=== PATIENT | female | born 1955 | race Hispanic/Latino ===

== ENCOUNTER 2016-12-21 20:47 | Inpatient (IN) | payer MEDICARE, MEDICAID ==
--- NOTE | 2016-12-21 22:09 | C.PDOC ---
History Of Present Illness 61 y/o female with PMHx of DM, and history of gait disturbance, walking with a walker regularly, presents to ED with c/o generalized weakness for the last 2 days. Brother states the patient fell in the tub recently. She has a home health aid that regularly visits her but notes that she has not sustained any other falls recently. Patient denies presence of pain or fevers. Brother notes mild cough recently which has been non-productive. Time Seen by Provider: 12/21/16 21:34 Chief Complaint (Nursing): Weakness/Neurological Deficit History Per: Patient History/Exam Limitations: no limitations Onset/Duration Of Symptoms: Days Current Symptoms Are (Timing): Still Present Seizure Or Post-ictal Symptoms: None Fall Associated With With Symptoms: Yes, No Injury As Result Of Fall Recent travel outside of the [place] States: No Past Medical History Reviewed: Historical Data, Nursing Documentation, Vital Signs Vital Signs: Last Vital Signs Temp 97.9 F 12/21/16 20:56 Pulse 80 12/22/16 00:15 Resp 20 12/22/16 00:15 BP 144/59 L 12/22/16 00:15 Pulse Ox 98 12/22/16 00:13 - Medical History PMH: Diabetes, Schizophrenia Family History: States: Unknown Family Hx - Social History Hx Alcohol Use: No Hx Substance Use: No - Immunization History Hx Tetanus Toxoid Vaccination: No Hx Influenza Vaccination: No Hx Pneumococcal Vaccination: No Review Of Systems Except As Marked, All Systems Reviewed And Found Negative. Constitutional: Positive for: Malaise. Negative for: Fever Cardiovascular: Negative for: Chest Pain Respiratory: Positive for: Cough. Negative for: Sputum Gastrointestinal: Negative for: Vomiting, Diarrhea Skin: Negative for: Rash Physical Exam - Physical Exam Appears: Non-toxic, Other (comfortable, generally weak, answering questions and responsive) Skin: Warm, Dry Head: Atraumatic, Normacephalic Oral Mucosa: Moist Chest: Symmetrical Cardiovascular: Rhythm Regular Respiratory: Normal Breath Sounds, No Rales, No Rhonchi, No Wheezing Gastrointestinal/Abdominal: Soft, No Tenderness Back: No Vertebral Tenderness, Other (mutiple bruises at various stages of healing ) Extremity: Normal ROM, Capillary Refill (< 2 sec. ) Neurological/Psych: Oriented x3 ED Course And Treatment - Laboratory Results Result Diagrams: 12/21/16 22:50 12/21/16 21:56 Lab Interpretation: Abnormal (Mild anemia and thrombocytopenia, renal insufficiency with BUN 48, Cr 1.8) O2 Sat by Pulse Oximetry: 98 (RA) Pulse Ox Interpretation: Normal - Radiology CXR: Interpreted by Me CXR Interpretation: Yes: Other (elevated left hemidiaphragm with ? lingular infiltrate.) Progress Note: EKG, CxR, labs ordered. Reevaluation Time: 23:54 Reassessment Condition: Unchanged - Physician Consult Information Time Consulting Physician Contacted: 23:54 Physician Contacted: Malik Gusman Outcome Of Conversation: PMD being covered by Dr Moore who does not admit here. Patient to be covered by hospitalist. Case discussed with Dr Swan. Disposition - Disposition Disposition: HOSPITALIZED Disposition Time: 00:43 Condition: STABLE Instructions: Weakness (ED) - POA Present On Arrival: None - Clinical Impression Clinical Impression: Weakness, Anemia, Thrombocytopenia, Renal insufficiency, Pneumonia - Scribe Statement The provider has reviewed the documentation as recorded by the Obi Umanzor Provider Scribe Attestation: All medical record entries made by the Obi were at my direction and personally dictated by me. I have reviewed the chart and agree that the record accurately reflects my personal performance of the history, physical exam, medical decision making, and the department course for this patient. I have also personally directed, reviewed, and agree with the discharge instructions and disposition.
[2016-12-21 22:46] LABS: ALB/GLOB RATIO 1.1 (1.0-2.1); BILIRUBIN,TOTAL 0.2 mg/dL (0.2-1.3); TOTAL PROTEIN 6.6 g/dL (6.3-8.3)
[2016-12-21 22:47] LABS: BASO % 0.5 % (0.0-2.0); EOS % 0.3 % (0.0-4.0); HEMATOCRIT 28.6 % (34.0-47.0); LYMPH # 0.6 K/uL (1.0-4.3); LYMPH % 10.1 % (20.0-40.0); MEAN CORPUSCULAR HEMOGLOBIN 27.5 pg (27.0-31.0); MEAN CORPUSCULAR HGB CONC 32.7 g/dL (33.0-37.0); MEAN PLATELET VOLUME 10.6 fL (7.2-11.7); MONO # 0.7 K/uL (0.0-0.8); MONO % 12.3 % (0.0-10.0); RED CELL DISTRIBUTION WIDTH 15.8 % (11.5-14.5); WHITE BLOOD COUNT 5.9 K/uL (4.8-10.8)
[2016-12-21 22:47] LABS: CALCIUM 7.6 mg/dl (8.6-10.4); MAGNESIUM 1.9 mg/dL (1.6-2.3)
[2016-12-21 22:49] LABS: RBC URINE 19 /hpf (0-3); URINE BACTERIA FEW (<OCC); URINE BILIRUBIN NEGATIVE (NEGATIVE); URINE COLOR Yellow (YELLOW); URINE GLUCOSE (UA) 1+ mg/dL (Normal); URINE HYALINE CAST 0-2 /lpf (0-2); URINE KETONE NEGATIVE (NEGATIVE); URINE LEUKOCYTE ESTERASE NEG Leu/uL (Negative); URINE PROTEIN 2+ mg/dL (NEGATIVE); URINE UROBILINOGEN NORMAL mg/dL (0.2-1.0); WBC URINE 6 /hpf (0-5)
[2016-12-21 23:24] LABS: URINE BLOOD 1+ (NEGATIVE)
[2016-12-22] MEDS ORDERED: Azithromycin 500 MG in Sodium Chloride 0.9% 250 ML IVPB STA (00:41)
[2016-12-22] MEDS ORDERED: cefTRIAXone IV 1 gm in Dextros 50 ML IVPB ONE ×2 (00:41→00:47)
[2016-12-22] MEDS ORDERED: Azithromycin 500mg/250ML NS 250 ML IVPB ONE (00:47)
[2016-12-22] MEDS: Sodium Chloride 0.9% 1,000 ML IV SCH ×4 (03:28→23:00)
[2016-12-22 06:50] LABS: IRON 22 ug/dL (37-170)
[2016-12-22 06:56] LABS: POTASSIUM 3.7 mmol/L (3.6-5.2)
[2016-12-22 06:58] LABS: BILIRUBIN,TOTAL 0.4 mg/dL (0.2-1.3)
[2016-12-22 06:59] LABS: CALCIUM 7.2 mg/dl (8.6-10.4); TOTAL PROTEIN 6.1 g/dL (6.3-8.3)
[2016-12-22 07:16] LABS: BASO % 0.5 % (0.0-2.0); HEMATOCRIT 27.1 % (34.0-47.0); LYMPH # 0.5 K/uL (1.0-4.3); LYMPH % 12.9 % (20.0-40.0); MEAN CELL VOLUME 83.4 fL (81.0-99.0); MEAN CORPUSCULAR HGB CONC 32.4 g/dL (33.0-37.0); MEAN PLATELET VOLUME 10.6 fL (7.2-11.7); MONO # 0.7 K/uL (0.0-0.8); MONO % 15.7 % (0.0-10.0); RED CELL DISTRIBUTION WIDTH 15.3 % (11.5-14.5); WHITE BLOOD COUNT 4.2 K/uL (4.8-10.8)
--- NOTE | 2016-12-22 07:20 | CP.PCM.HP ---
<Ami Karey AVINA - Last Filed: 12/22/16 07:22> History of Present Illness - History of Present Illness History of Present Illness: Patient is a 61 year old female with past medical history of schizophrenia and diabetes who presents to the ER accompanied by her brother with complaint of weakness for the past two days. Patient and brother states that she has had a cough that is non-productive, has had occasional diarrhea, and has had decreased appetite since Monday. Patient's brother states that at baseline, patient walks with a walker and can take care of herself for toileting, however recently the patient has needed assistance. Brother also states that the patient was so weak she could hardly get out of a chair by herself. Brother also reports that normally there is a home health aid that comes three times a week for 4 hours each day and assists the patient with bathing. The day prior to admission the home health aid was ill and so the patient tried to shower alone. Per the brother, when he came home from work he found the patient laying in the bathtub unable to get up. Brother helped the patient out of the tub but the patient sustained bruises to her upper back from the fall. Brother also states that the patient's speech is less energetic than normal. PMD: dre snell- last saw one month ago PMHx: diabetes, schizophrenia PSHx: ankle surgery FamHx: many family members with diabetes and heart issues Social: denies tobacco, alcohol, drugs; lives with brother and has home health aid; uses a walker- formerly had history of falls Present on Admission - Present on Admission Any Indicators Present on Admission: No Review of Systems - Constitutional Constitutional: Lethargy, Weakness. absent: Chills, Fever - EENT Nose/Mouth/Throat: absent: Sore Throat - Cardiovascular Cardiovascular: absent: Chest Pain, Chest Pain at Rest, Dyspnea - Respiratory Respiratory: Cough. absent: Dyspnea - Gastrointestinal Gastrointestinal: Diarrhea. absent: Abdominal Pain, Nausea, Vomiting - Genitourinary Genitourinary: absent: Difficulty Urinating, Urinary Frequency - Musculoskeletal Musculoskeletal: absent: Back Pain - Neurological Neurological: Weakness. absent: Focal Weakness Past Patient History - Past Medical History & Family History Past Medical History?: Yes - Past Social History Smoking Status: Never Smoked - CARDIAC Hx Cardiac Disorders: No - PULMONARY Hx Respiratory Disorders: No - NEUROLOGICAL Hx Neurological Disorder: No - HEENT Hx HEENT Problems: No - RENAL Hx Chronic Kidney Disease: No - ENDOCRINE/METABOLIC Hx Endocrine Disorders: Yes Hx Diabetes Mellitus Type 1: Yes - HEMATOLOGICAL/ONCOLOGICAL Hx Blood Disorders: No - INTEGUMENTARY Hx Dermatological Problems: No - MUSCULOSKELETAL/RHEUMATOLOGICAL Hx Musculoskeletal Disorders: Yes Hx Falls: Yes - GASTROINTESTINAL Hx Gastrointestinal Disorders: No - GENITOURINARY/GYNECOLOGICAL Hx Genitourinary Disorders: No - PSYCHIATRIC Hx Psychophysiologic Disorder: Yes Hx Schizophrenia: Yes Hx Substance Use: No - SURGICAL HISTORY Hx Surgeries: Yes Other/Comment: left ankle surgery -2009 - ANESTHESIA Hx Anesthesia: Yes Hx Anesthesia Reactions: No Hx Malignant Hyperthermia: No Has any member of the family had a problem w/ anesthesia?: No Meds Allergies/Adverse Reactions: Allergies Allergy/AdvReac Type Severity Reaction Status Date / Time No Known Allergies Allergy Unverified 12/21/16 21:00 Physical Exam - Constitutional Appears: Non-toxic, No Acute Distress, Unkempt - Head Exam Head Exam: ATRAUMATIC, NORMOCEPHALIC - Eye Exam Eye Exam: EOMI - ENT Exam Additional comments: dry lips - Respiratory Exam Respiratory Exam: NORMAL BREATHING PATTERN. absent: Rales, Rhonchi, Wheezes - Cardiovascular Exam Cardiovascular Exam: +S1, +S2 - GI/Abdominal Exam GI & Abdominal Exam: Normal Bowel Sounds, Soft. absent: Tenderness - Extremities Exam Additional comments: pink ulcer medial left ankle mild edema left lower extremity thickened toenails dry scaling skin on feet - Back Exam Additional comments: ecchymosis upper back - Neurological Exam Neurological exam: Alert, CN II-XII Intact Additional comments: mild dysmetria finger to nose on right rigid motion with flexing of upper and lower extremities - Psychiatric Exam Psychiatric exam: Flat Affect - Skin Skin Exam: Dry, Warm Results - Vital Signs Recent Vital Signs: Last Vital Signs Temp 98.2 F 12/22/16 02:36 Pulse 88 12/22/16 02:36 Resp 19 12/22/16 02:36 BP 125/63 12/22/16 02:36 Pulse Ox 100 12/22/16 02:36 - Labs Result Diagrams: 12/22/16 06:32 12/22/16 06:32 Labs: Laboratory Results - last 24 hr 12/22/16 12/22/16 06:32 06:36 Sodium 134 Potassium 3.7 Chloride 99 Carbon Dioxide 25 Anion Gap 13 BUN 45 H Creatinine 1.8 H Est GFR ( Amer) 34 Est GFR (Non-Af Amer) 28 POC Glucose (mg/dL) 125 H Random Glucose 116 H Calcium 7.2 L Iron 22 L TIBC 273 % Saturation 8 L Total Bilirubin 0.4 AST 84 H ALT 30 Alkaline Phosphatase 77 Total Protein 6.1 L Albumin 3.1 L Globulin 3.0 Albumin/Globulin Ratio 1.0 Assessment & Plan - Assessment and Plan (Free Text) Assessment: Anemia check iron studies check B12 check folate renal insufficiency start NS @ 100cc, will continue to trend BUN/ Cr Cough with suspicion for pneumonia chest xray has obscured left costophrenic angle will check procalcitonin will check CT chest start azithromycin and ceftriaxone Hx schizophrenia patient's brother to bring in medication doses will start cogentin for rigidity on exam- possible medication side effect continue chlorpromazine Hx fall check CT head PT eval Diabetes ISS with accuchecks, diabetic diet Leg wound check venous doppler wound care consult Onychomycosis Podiatry consult for Dr. Perez- help appreciated PPx fall precautions physical therapy case management referral <Vega Swan P - Last Filed: 12/25/16 20:26> Results - Vital Signs Recent Vital Signs: Last Vital Signs Temp 98.7 F 12/25/16 17:29 Pulse 98 H 12/25/16 17:29 Resp 20 12/25/16 17:29 BP 161/69 H 12/25/16 17:29 Pulse Ox 99 12/25/16 17:29 - Labs Result Diagrams: 12/25/16 06:06 12/25/16 06:06 Labs: Laboratory Results - last 24 hr 12/24/16 12/24/16 12/25/16 08:02 20:52 06:06 WBC 7.7 RBC 3.33 L Hgb 8.9 L Hct 27.8 L MCV 83.7 MCH 26.7 L MCHC 31.9 L RDW 15.4 H Plt Count 102 L MPV 10.5 Neut % (Auto) 83.9 H Lymph % (Auto) 7.1 L [place] % (Auto) 7.7 Eos % (Auto) 0.9 Baso % (Auto) 0.4 Neut # 6.5 Lymph # 0.5 L [place] # 0.6 Eos # 0.1 Baso # 0.0 Neutrophils % (Manual) 86 H Band Neutrophils % 1 Lymphocytes % (Manual) 4 L Reactive Lymphs % 1 H Monocytes % (Manual) 8 Toxic Granulation Present Platelet Estimate Slightly decreased L Large Platelets Present Giant Platelets Present Polychromasia Slight Hypochromasia (manual) Slight Poikilocytosis (manual Slight Anisocytosis (manual) Slight Ovalocytes Slight Sodium 140 Potassium 4.3 Chloride 102 Carbon Dioxide 27 Anion Gap 16 BUN 40 H Creatinine 2.2 H Est GFR ( Amer) 27 Est GFR (Non-Af Amer) 23 POC Glucose (mg/dL) 239 H Random Glucose 216 H Calcium 7.6 L Total Bilirubin 0.1 L AST 34 ALT 24 Alkaline Phosphatase 66 Total Protein 6.2 L Albumin 3.1 L Globulin 3.1 Albumin/Globulin Ratio 1.0 Urine Collection Time 24 Urine Total Volume 3250 Ur Protein 24 Hr Calc 3152.5 H 12/25/16 12/25/16 12/25/16 06:17 11:18 17:03 WBC RBC Hgb Hct MCV MCH MCHC RDW Plt Count MPV Neut % (Auto) Lymph % (Auto) [place] % (Auto) Eos % (Auto) Baso % (Auto) Neut # Lymph # [place] # Eos # Baso # Neutrophils % (Manual) Band Neutrophils % Lymphocytes % (Manual) Reactive Lymphs % Monocytes % (Manual) Toxic Granulation Platelet Estimate Large Platelets Giant Platelets Polychromasia Hypochromasia (manual) Poikilocytosis (manual Anisocytosis (manual) Ovalocytes Sodium Potassium Chloride Carbon Dioxide Anion Gap BUN Creatinine Est GFR ( Amer) Est GFR (Non-Af Amer) POC Glucose (mg/dL) 252 H 283 H 269 H Random Glucose Calcium Total Bilirubin AST ALT Alkaline Phosphatase Total Protein Albumin Globulin Albumin/Globulin Ratio Urine Collection Time Urine Total Volume Ur Protein 24 Hr Calc Attending/Attestation - Attestation I have personally seen and examined this patient.: Yes I have fully participated in the care of the patient.: Yes I have reviewed all pertinent clinical information: Yes
[2016-12-22] MEDS: (Novolin R) Insulin Human Regular 100 units/ml vial SC SCH ×4 (07:49→21:11)
[2016-12-22 07:58] LABS: FOLATE 17.5 ng/mL
--- NOTE | 2016-12-22 08:34 | RAD ---
PROCEDURE: CHEST RADIOGRAPH, 1 VIEW HISTORY: Shortness of breath COMPARISON: None available. FINDINGS: LUNGS: Confluent left basilar airspace opacity with small left pleural effusion. Venous congestion. Right hilar prominence. Patient rotated creating a left paratracheal opacity. Repeat study recommended to determine if opacity persists. PLEURA: As above. CARDIOVASCULAR: Cardiomegaly. OSSEOUS STRUCTURES: No significant abnormalities. VISUALIZED UPPER ABDOMEN: Normal. OTHER FINDINGS: None. IMPRESSION: Confluent left basilar airspace opacity with small left pleural effusion. Venous congestion. Right hilar prominence. Patient rotated creating a left paratracheal opacity. Repeat study recommended to determine if opacity persists.
--- NOTE | 2016-12-22 09:32 | CT ---
PROCEDURE: CT HEAD WITHOUT CONTRAST. HISTORY: recent fall COMPARISON: None available. TECHNIQUE: Axial computed tomography images were obtained through the head/brain without intravenous contrast. Radiation dose: Total exam DLP = 981.84 mGy-cm. This CT exam was performed using one or more of the following dose reduction techniques: Automated exposure control, adjustment of the mA and/or kV according to patient size, and/or use of iterative reconstruction technique. FINDINGS: HEMORRHAGE: No acute parenchymal, subarachnoid nor extra-axial hemorrhage. BRAIN: Mild -moderate chronic periventricular white matter ischemic changes are seen extending peripherally into the deep and subcortical white matter both cerebral hemispheres. In addition, few scattered chronic bilateral basal nuclei lacunar type infarcts are present as well. Vascular calcifications of the carotid siphons noted. VENTRICLES: There is dilatation of the ventricular system which may in part be due to central volume loss however the possibility of chronic compensated obstructive hydrocephalus (communicating type) to be excluded. The normal pressure hydrocephalus can be considered only if the clinical triad of dementia, ataxia and incontinence present. CALVARIUM: No acute calvarial fractures. PARANASAL SINUSES: Mild mucosal thickening noted within the ethmoid air complex extending slightly into the inferior aspect of the frontal sinus which is hypoplastic. Mild mucosal thickening within the sphenoid sinus ; tiny fluid levels cannot be completely excluded. MASTOID AIR CELLS: Unremarkable as visualized. No inflammatory changes. OTHER FINDINGS: None. IMPRESSION: Chronic -moderate white matter ischemic changes and scattered chronic bilateral basal nuclei lacunar type infarcts Dilatation of the ventricular system on may in part be due to central volume loss however the possibility of chronic compensated obstructive hydrocephalus to be excluded. Normal pressure hydrocephalus can be considered only if the clinical triad of dementia, ataxia and incontinence present.
--- NOTE | 2016-12-22 09:36 | CT ---
CT chest without IV contrast Indication: Possible pneumonia Technique: Contiguous axial images were obtained through the chest without intravenous contrast enhancement. Sagittal and coronal reconstructions were generated and reviewed. This CT exam was performed using 1 or more of the falling dose reduction techniques: Automated exposure control, adjustment of the MAA and/or kV according to patient size, and/or use of iterative reconstruction technique. Radiation dose (DLP): 574.82 MGy-cm. Comparison: Chest x-ray performed 12/21/16 Findings: Visualized portions of the inferior thyroid gland appear unremarkable. The unenhanced mediastinal and hilar vascular structures appear grossly unremarkable. Mild cardiomegaly. No significant pericardial effusion. Coronary artery calcifications. No bulky adenopathy identified. Lack of IV contrast limits evaluation for adenopathy, in particular hilar adenopathy. Small hiatal hernia/distal esophageal wall thickening. Mild left basilar atelectasis, less likely pneumonia. Mild dependent atelectasis right lung base. No pleural effusion. No pneumothorax. No suspicious pulmonary nodules measuring greater than 5 mm. Limited visualization of the noncontrast upper abdomen appears grossly unremarkable. Degenerative changes of the spine. Impression: Mild left basilar atelectasis, less likely pneumonia. Mild dependent atelectasis right lung base. Small hiatal hernia/distal esophageal wall thickening. Additional findings as above.
--- NOTE | 2016-12-22 14:04 | CP.PCM.PN ---
<Fazal Jones - Last Filed: 12/22/16 15:58> Subjective - Date & Time of Evaluation Date of Evaluation: 12/22/16 Time of Evaluation: 07:30 - Subjective Subjective: PGY-1 Medicine Progress Note for Dr. Clay Patient seen and examined at bedside. No acute event overnight. Patient resting in bed comfortably. Patient slightly lethargic and complaining of weakness. Patient gives minimal one word answers and seems distracted. Patient has no other complaints. Objective - Vital Signs/Intake and Output Vital Signs (last 24 hours): Temp Pulse Resp BP Pulse Ox 98.0 F 94 H 18 154/74 H 96 12/22/16 07:00 12/22/16 07:00 12/22/16 07:00 12/22/16 07:00 12/22/16 07:00 Intake and Output: 12/22/16 12/22/16 06:59 18:59 Intake Total 400 Balance 400 - Medications Medications: Current Medications Benztropine Mesylate (Cogentin) 1 mg PO DAILY [facility] Last Admin: 12/22/16 14:00 Dose: 1 mg Chlorpromazine (Thorazine) 25 mg PO DAILY [facility] Last Admin: 12/22/16 14:00 Dose: 25 mg Sodium Chloride (Sodium Chloride 0.9%) 1,000 mls @ 100 mls/hr IV .Q10H [facility] Last Admin: 12/22/16 14:03 Dose: Not Given Azithromycin 500 mg/ Sodium (Chloride) 250 mls @ 250 mls/hr IVPB DAILY@2330 [facility] Ceftriaxone Sodium (Rocephin Iv 1 Gm Duplex) 50 mls @ 100 mls/hr IVPB DAILY@ 2300 [facility] Insulin Human Regular (Novolin R) 0 unit SC ACHS [facility] PRN Reason: Protocol Last Admin: 12/22/16 12:00 Dose: 2 unit - Labs Labs: 12/22/16 06:32 12/22/16 06:32 - Constitutional Appears: No Acute Distress - Head Exam Head Exam: ATRAUMATIC, NORMOCEPHALIC - Eye Exam Eye Exam: EOMI, Normal appearance Pupil Exam: PERRL - ENT Exam ENT Exam: Mucous Membranes Dry - Neck Exam Neck Exam: Normal Inspection - Respiratory Exam Respiratory Exam: NORMAL BREATHING PATTERN. absent: Accessory Muscle Use, Respiratory Distress - Cardiovascular Exam Cardiovascular Exam: REGULAR RHYTHM, +S1, +S2 - GI/Abdominal Exam GI & Abdominal Exam: Soft, Normal Bowel Sounds. absent: Tenderness - Extremities Exam Extremities Exam: Normal Capillary Refill Additional comments: pink ulcer medial left ankle mild edema left lower extremity thickened toenails - Back Exam Back Exam: absent: CVA tenderness (L), CVA tenderness (R) Additional comments: ecchymosis upper back - Neurological Exam Neurological Exam: Alert, Awake, CN II-XII Intact Additional comments: mild dysmetria finger to nose on right rigid motion with flexing of upper and lower extremities - Psychiatric Exam Psychiatric exam: Flat Affect - Skin Skin Exam: Dry, Warm Additional comments: Abrasions on shoulders bilaterally dry scaly skin on feet Assessment and Plan - Assessment and Plan (Free Text) Plan: 1. Anemia iron 22 L TIBC 273 B12 684 folate 17.5 Ferrous Sulfate 325 mg PO BID 2. Renal insufficiency NS 100cc/hr BUN/ Cr: 45/1.8 Nephro consult, Dr. Larsen, help appreciated 3. Cough with suspicion for pneumonia CXR: obscured left costophrenic angle (see full report) procalcitonin 0.[address] chest: mild basilar atelectasis, mild right lung base atelectasis. Small hiatal hernia (see full report) start azithromycin and ceftriaxone 4. Hx schizophrenia cogentin for rigidity on exam- possible medication side effect continue chlorpromazine 5. s/p fall CT head: chronic microvascular changes, dilation of the ventricles (see full report) Neuro consult, Dr Reynoso, help appreciated Neurosurgery consult, Dr. Franks, help appreciated - discussed case with Dr. Franks, he stated that due to other medical problems there is no benefit for intervention at this point. He will re-evaluate patient with right before discharge or have her follow up as outpatient to formulate plan of care. 6. Diabetes ISS with accuchecks diabetic diet HA1C 9.3 7. Leg wound check venous doppler wound care consult 8. Onychomycosis Podiatry consult, Dr. Perez, help appreciated 9. Prophylactic Measures fall precautions physical therapy case management referral diabetic diet Colace 100 mg PO BID <Isra Clay - Last Filed: 01/25/17 14:56> Objective - Vital Signs/Intake and Output Vital Signs (last 24 hours): Temp Pulse Resp BP Pulse Ox 98.7 F 91 H 20 163/67 H 99 12/26/16 12:58 12/26/16 07:55 12/26/16 07:00 12/26/16 12:58 12/26/16 12:58 - Labs Labs: 12/26/16 06:07 12/26/16 06:07 Attending/Attestation - Attestation I have personally seen and examined this patient.: Yes I have fully participated in the care of the patient.: Yes I have reviewed all pertinent clinical information, including history, physical exam and plan: Yes Notes (Text): Patient seen and examined with the resident. Agree with the resident's evaluation, assessment and plan. 1. Anemia iron 22 L TIBC 273 B12 684 folate 17.5 Ferrous Sulfate 325 mg PO BID 2. Renal insufficiency NS 100cc/hr BUN/ Cr: 45/1.8 Nephro consult, Dr. Larsen, help appreciated 3. Cough with suspicion for pneumonia CXR: obscured left costophrenic angle (see full report) procalcitonin 0.[address] chest: mild basilar atelectasis, mild right lung base atelectasis. Small hiatal hernia (see full report) start azithromycin and ceftriaxone
--- NOTE | 2016-12-22 16:02 | CP.PCM.CON ---
History of Present Illness - History of Present Illness History of Present Illness: 61 year old female with past medical history of schizophrenia and diabetes was seen at bedside regarding elongated toenails. Patient denies any pain to the nails. But she complaints that she "wants her pants changed". Patient is a poor historian. She does not know when the last time her nails have been cut. She denies n/v/f/c/sob/cp. Past Patient History - Past Medical History & Family History Past Medical History?: Yes - Past Social History Smoking Status: Never Smoked - CARDIAC Hx Cardiac Disorders: No - PULMONARY Hx Respiratory Disorders: No - NEUROLOGICAL Hx Neurological Disorder: No - HEENT Hx HEENT Problems: No - RENAL Hx Chronic Kidney Disease: No - ENDOCRINE/METABOLIC Hx Diabetes Mellitus Type 2: Yes - HEMATOLOGICAL/ONCOLOGICAL Hx Blood Disorders: No - INTEGUMENTARY Hx Dermatological Problems: No - MUSCULOSKELETAL/RHEUMATOLOGICAL Hx Musculoskeletal Disorders: Yes Hx Falls: Yes - GASTROINTESTINAL Hx Gastrointestinal Disorders: No - GENITOURINARY/GYNECOLOGICAL Hx Genitourinary Disorders: No - PSYCHIATRIC Hx Psychophysiologic Disorder: Yes Hx Schizophrenia: Yes Hx Substance Use: No - SURGICAL HISTORY Hx Surgeries: Yes Other/Comment: left ankle surgery -2009 - ANESTHESIA Hx Anesthesia: Yes Hx Anesthesia Reactions: No Hx Malignant Hyperthermia: No Has any member of the family had a problem w/ anesthesia?: No Meds Allergies/Adverse Reactions: Allergies Allergy/AdvReac Type Severity Reaction Status Date / Time No Known Allergies Allergy Unverified 12/21/16 21:00 - Medications Medications: Current Medications Benztropine Mesylate (Cogentin) 1 mg PO DAILY [facility] Last Admin: 12/22/16 14:00 Dose: 1 mg Chlorpromazine (Thorazine) 25 mg PO DAILY [facility] Last Admin: 12/22/16 14:00 Dose: 25 mg Sodium Chloride (Sodium Chloride 0.9%) 1,000 mls @ 100 mls/hr IV .Q10H [facility] Last Admin: 12/22/16 14:03 Dose: Not Given Azithromycin 500 mg/ Sodium (Chloride) 250 mls @ 250 mls/hr IVPB DAILY@2330 [facility] Ceftriaxone Sodium (Rocephin Iv 1 Gm Duplex) 50 mls @ 100 mls/hr IVPB DAILY@ 2300 [facility] Insulin Human Regular (Novolin R) 0 unit SC ACHS [facility] PRN Reason: Protocol Last Admin: 12/22/16 12:00 Dose: 2 unit Physical Exam - Constitutional Appears: Non-toxic, No Acute Distress - Extremities Exam Additional comments: Vasc: DP and PT pulses palpable 2/4 b/l. CFT < 3 seconds to all digits b/l. Skin temperature warm to cool from proximal to distal b/l. Neuro: Gross sensation diminished b/l. Ortho: No pain on palpation to digits b/l. Derm:Nails 1,2 on the right are grossly elongated and incurvated. Nails 3-5 on the right, 1-5 on the left are thickened, elongated, discolored. Webspaces are clean, dry, intact. Superficial abrasion noted to the medial aspect of the left calf with red base, no drainage, no malodor noted. - Neurological Exam Neurological exam: Alert, Oriented x3 - Psychiatric Exam Psychiatric exam: Normal Affect, Normal Mood Results - Vital Signs Recent Vital Signs: Last Vital Signs Temp 98.0 F 12/22/16 07:00 Pulse 94 H 12/22/16 07:00 Resp 18 12/22/16 07:00 BP 154/74 H 12/22/16 07:00 Pulse Ox 96 12/22/16 07:00 - Labs Result Diagrams: 12/22/16 06:32 12/22/16 06:32 Labs: Laboratory Results - last 24 hr 12/22/16 12/22/16 12/22/16 06:32 06:36 11:28 WBC 4.2 L RBC 3.25 L Hgb 8.8 L Hct 27.1 L MCV 83.4 MCH 27.0 MCHC 32.4 L RDW 15.3 H Plt Count 118 L MPV 10.6 Neut % (Auto) 69.9 Lymph % (Auto) 12.9 L [place] % (Auto) 15.7 H Eos % (Auto) 1.0 Baso % (Auto) 0.5 Neut # 2.9 Lymph # 0.5 L [place] # 0.7 Eos # 0.0 Baso # 0.0 Sodium 134 Potassium 3.7 Chloride 99 Carbon Dioxide 25 Anion Gap 13 BUN 45 H Creatinine 1.8 H Est GFR ( Amer) 34 Est GFR (Non-Af Amer) 28 POC Glucose (mg/dL) 125 H 219 H Random Glucose 116 H Hemoglobin A1c 9.3 H Calcium 7.2 L Iron 22 L TIBC 273 % Saturation 8 L Total Bilirubin 0.4 AST 84 H ALT 30 Alkaline Phosphatase 77 Total Protein 6.1 L Albumin 3.1 L Globulin 3.0 Albumin/Globulin Ratio 1.0 Vitamin B12 684 Folate 17.5 Procalcitonin 0.50 H Assessment & Plan - Assessment and Plan (Free Text) Assessment: 61 year old female with elongated nails 1-5 b/l. Plan: Patient examined and evaluated Discussed in detail with attending, Dr. Perez Nails 1-5 b/l were debrided in thickness and in length without incident Left leg abrasion dressed with DSD Podiatry will continue to follow patient while in house
[2016-12-22] MEDS: cefTRIAXone IV 1 gm in Dextros 50 ML IVPB SCH (22:16)
[2016-12-22] MEDS: Azithromycin 500 MG in Sodium Chloride 0.9% 250 ML IVPB SCH (22:53)
--- NOTE | 2016-12-23 00:18 | CP.PCM.CON ---
History of Present Illness - History of Present Illness History of Present Illness: History Of Present Illness 61 y/o female with PMHx of DM, and history of gait disturbance, walking with a walker regularly, presents to ED with c/o generalized weakness for the last 2 days. Brother states the patient fell in the tub recently. She has a home health aid that regularly visits her but notes that she has not sustained any other falls recently. Patient denies presence of pain or fevers. Brother notes mild cough recently which has been non-productive. She has a past medical history of schizophrenia and diabetes and a History of inadequate personal Hygiene. She was seen at bedside and was asked regarding elongated toenails. Patient denies any pain to the nails. She does not know when the last time her nails have been cut. She denies n/v/f /c/sob/cp. But she complaints that she "wants her pants changed". Patient is a poor historian. Time Seen by Provider: 12/21/16 21:34 Chief Complaint (Nursing): Weakness/Neurological Deficit History Per: Patient History/Exam Limitations: no limitations Onset/Duration Of Symptoms: Days Current Symptoms Are (Timing): Still Present Seizure Or Post-ictal Symptoms: None Fall Associated With With Symptoms: Yes, No Injury As Result Of Fall Recent travel outside of the [place]: No Past Medical History Reviewed: Historical Data, Nursing Documentation, Vital Signs Vital Signs: Last Vital Signs Temp 97.9 F 12/21/16 20:56 Pulse 80 12/22/16 00:15 Resp 20 12/22/16 00:15 BP 144/59 L 12/22/16 00:15 Pulse Ox 98 12/22/16 00:13 - Medical History PMH: Diabetes, Schizophrenia Family History: States: Unknown Family Hx - Social History Hx Alcohol Use: No Hx Substance Use: No - Immunization History Hx Tetanus Toxoid Vaccination: No Hx Influenza Vaccination: No Hx Pneumococcal Vaccination: No Review Of Systems Except As Marked, All Systems Reviewed And Found Negative. Constitutional: Positive for: Malaise. Negative for: Fever Cardiovascular: Negative for: Chest Pain Respiratory: Positive for: Cough. Negative for: Sputum Gastrointestinal: Negative for: Vomiting, Diarrhea Skin: Negative for: Rash Physical Exam - Physical Exam Appears: Non-toxic, Other (comfortable, generally weak, answering questions and responsive) Skin: Warm, Dry Head: Atraumatic, Normacephalic Oral Mucosa: Moist Chest: Symmetrical Cardiovascular: Rhythm Regular Respiratory: Normal Breath Sounds, No Rales, No Rhonchi, No Wheezing Gastrointestinal/Abdominal: Soft, No Tenderness Back: No Vertebral Tenderness, Other (mutiple bruises at various stages of healing ) Extremity: Normal ROM, Capillary Refill (< 2 sec. ) Neurological/Psych: Oriented x3 - Radiology CXR: Interpreted by Me CXR Interpretation: Yes: Other (elevated left hemidiaphragm with ? lingular infiltrate.) Progress Note: EKG, CXR, labs ordered. Reevaluation Time: 23:54 Reassessment Condition: Unchanged Clinical Impression: Weakness, Anemia, Thrombocytopenia, Renal insufficiency, Pneumonia Past Patient History - Past Medical History & Family History Past Medical History?: Yes - Past Social History Smoking Status: Never Smoked - CARDIAC Hx Cardiac Disorders: No - PULMONARY Hx Respiratory Disorders: No - NEUROLOGICAL Hx Neurological Disorder: No - HEENT Hx HEENT Problems: No - RENAL Hx Chronic Kidney Disease: No - ENDOCRINE/METABOLIC Hx Diabetes Mellitus Type 2: Yes - HEMATOLOGICAL/ONCOLOGICAL Hx Blood Disorders: No - INTEGUMENTARY Hx Dermatological Problems: No - MUSCULOSKELETAL/RHEUMATOLOGICAL Hx Musculoskeletal Disorders: Yes Hx Falls: Yes - GASTROINTESTINAL Hx Gastrointestinal Disorders: No - GENITOURINARY/GYNECOLOGICAL Hx Genitourinary Disorders: No - PSYCHIATRIC Hx Psychophysiologic Disorder: Yes Hx Schizophrenia: Yes Hx Substance Use: No - SURGICAL HISTORY Hx Surgeries: Yes Other/Comment: left ankle surgery -2009 - ANESTHESIA Hx Anesthesia: Yes Hx Anesthesia Reactions: No Hx Malignant Hyperthermia: No Has any member of the family had a problem w/ anesthesia?: No Meds Allergies/Adverse Reactions: Allergies Allergy/AdvReac Type Severity Reaction Status Date / Time No Known Allergies Allergy Unverified 12/21/16 21:00 - Medications Medications: Current Medications Benztropine Mesylate (Cogentin) 1 mg PO DAILY [facility] Last Admin: 12/22/16 14:00 Dose: 1 mg Chlorpromazine (Thorazine) 25 mg PO DAILY [facility] Last Admin: 12/22/16 14:00 Dose: 25 mg Docusate Sodium (Colace) 100 mg PO BID [facility] Last Admin: 12/22/16 17:50 Dose: 100 mg Ferrous Sulfate (Feosol) 325 mg PO BID [facility] Last Admin: 12/22/16 17:50 Dose: 325 mg Sodium Chloride (Sodium Chloride 0.9%) 1,000 mls @ 100 mls/hr IV .Q10H [facility] Last Admin: 12/22/16 17:53 Dose: 100 mls/hr Azithromycin 500 mg/ Sodium (Chloride) 250 mls @ 250 mls/hr IVPB DAILY@2330 [facility] Last Admin: 12/22/16 22:53 Dose: 250 mls/hr Ceftriaxone Sodium (Rocephin Iv 1 Gm Duplex) 50 mls @ 100 mls/hr IVPB DAILY@ 2300 [facility] Last Admin: 12/22/16 22:16 Dose: 100 mls/hr Insulin Human Regular (Novolin R) 0 unit SC ACHS [facility] PRN Reason: Protocol Last Admin: 12/22/16 21:11 Dose: Not Given Physical Exam - Neurological Exam Additional comments: Overweight to obese, big round face with big cheeks , She allowed Podiatry to trim the nails of the left foot, not the Right foot. Mental Status: Normal exam Awake, Alert, Oriented x 3 she has difficulty knowing who is the president but knows the names of her children, as she is not interested in Politics normal memory X 3 Cranial Nerves II to XII: No major deficits Motor: Normal tone, Normal Power DTR 0/4 Toes are down going Sensory: Reduced sensation peripherally in both UEs and Both LEs Cerebellar: Normal FNT Stature and Gait: Not tested. Results - Vital Signs Recent Vital Signs: Last Vital Signs Temp 98.0 F 12/22/16 17:00 Pulse 88 12/22/16 17:00 Resp 20 12/22/16 17:00 BP 165/72 H 12/22/16 17:00 Pulse Ox 100 12/22/16 17:00 - Labs Result Diagrams: 12/24/16 00:08 12/24/16 00:08 Labs: Laboratory Results - last 24 hr 12/22/16 12/22/16 12/22/16 06:32 06:36 11:28 WBC 4.2 L RBC 3.25 L Hgb 8.8 L Hct 27.1 L MCV 83.4 MCH 27.0 MCHC 32.4 L RDW 15.3 H Plt Count 118 L MPV 10.6 Neut % (Auto) 69.9 Lymph % (Auto) 12.9 L [place] % (Auto) 15.7 H Eos % (Auto) 1.0 Baso % (Auto) 0.5 Neut # 2.9 Lymph # 0.5 L [place] # 0.7 Eos # 0.0 Baso # 0.0 Sodium 134 Potassium 3.7 Chloride 99 Carbon Dioxide 25 Anion Gap 13 BUN 45 H Creatinine 1.8 H Est GFR ( Amer) 34 Est GFR (Non-Af Amer) 28 POC Glucose (mg/dL) 125 H 219 H Random Glucose 116 H Hemoglobin A1c 9.3 H Calcium 7.2 L Iron 22 L TIBC 273 % Saturation 8 L Total Bilirubin 0.4 AST 84 H ALT 30 Alkaline Phosphatase 77 Total Protein 6.1 L Albumin 3.1 L Globulin 3.0 Albumin/Globulin Ratio 1.0 Vitamin B12 684 Folate 17.5 Procalcitonin 0.50 H 12/22/16 12/22/16 16:23 20:58 WBC RBC Hgb Hct MCV MCH MCHC RDW Plt Count MPV Neut % (Auto) Lymph % (Auto) [place] % (Auto) Eos % (Auto) Baso % (Auto) Neut # Lymph # [place] # Eos # Baso # Sodium Potassium Chloride Carbon Dioxide Anion Gap BUN Creatinine Est GFR ( Amer) Est GFR (Non-Af Amer) POC Glucose (mg/dL) 152 H 211 H Random Glucose Hemoglobin A1c Calcium Iron TIBC % Saturation Total Bilirubin AST ALT Alkaline Phosphatase Total Protein Albumin Globulin Albumin/Globulin Ratio Vitamin B12 Folate Procalcitonin Assessment & Plan (1) Anemia Status: Acute (2) Generalized weakness Status: Acute (3) Pneumonia Status: Acute (4) Thrombocytopenia Assessment and Plan: mild anemia, mild renal insufficiency Status: Acute (5) Onychomycosis Assessment and Plan: Dr Perez, Tubing Supervisor is on Board. Status: Acute (6) Schizophrenia Assessment and Plan: Psychiatry is on Board. R/o Exacerbation of Schizophrenia Status: Acute (7) Diabetes mellitus Assessment and Plan: R/O Diabetic Peripheral Neuropathy as a cause of her recurrent falling, R/O Radiculitis due to DM as a cause of her recurrent falling Status: Chronic
[2016-12-23] MEDS: guaiFENesin DM 200 mg-20 mg/10 ml UD PO PRN ×2 (04:52→10:00)
[2016-12-23] MEDS: Sodium Chloride 0.9% 1,000 ML IV SCH ×2 (07:22→10:00)
[2016-12-23] MEDS: (Novolin R) Insulin Human Regular 100 units/ml vial SC SCH ×4 (09:59→21:51)
[2016-12-23 10:03] LABS: BASO % 0.6 % (0.0-2.0); EOS % 0.9 % (0.0-4.0); HEMATOCRIT 26.7 % (34.0-47.0); LYMPH # 0.6 K/uL (1.0-4.3); LYMPH % 16.6 % (20.0-40.0); MEAN CELL VOLUME 83.9 fL (81.0-99.0); MEAN CORPUSCULAR HEMOGLOBIN 26.8 pg (27.0-31.0); MEAN PLATELET VOLUME 11.5 fL (7.2-11.7); MONO # 0.5 K/uL (0.0-0.8); MONO % 12.3 % (0.0-10.0); NRBC % 0.1 % (0.0-2.0); RED CELL DISTRIBUTION WIDTH 15.6 % (11.5-14.5); WHITE BLOOD COUNT 3.9 K/uL (4.8-10.8)
[2016-12-23 10:10] LABS: CHLORIDE 105 mmol/L (98-107); POTASSIUM 4.2 mmol/L (3.6-5.2); SODIUM 138 mmol/L (132-148)
--- NOTE | 2016-12-23 10:11 | CP.PCM.PN ---
Subjective - Date & Time of Evaluation Date of Evaluation: 12/23/16 Time of Evaluation: 10:10 - Subjective Subjective: 61 y/o female seen and evaluated with healed left leg abrasion/blister. Patient seen at bedside with Dr. Perez. No complaints at this time. No pain in her legs. No pedal complaints. Denies any acute events. Elsy any f/c/n/v/sob. Objective - Vital Signs/Intake and Output Vital Signs (last 24 hours): Temp Pulse Resp BP Pulse Ox 98.3 F 84 20 157/75 H 95 12/23/16 08:51 12/23/16 08:51 12/23/16 08:51 12/23/16 08:51 12/23/16 08:51 Intake and Output: 12/23/16 12/23/16 06:59 18:59 Intake Total 1970 Output Total 200 Balance 1770 - Medications Medications: Current Medications Benztropine Mesylate (Cogentin) 1 mg PO DAILY [facility] Last Admin: 12/23/16 10:00 Dose: 1 mg Chlorpromazine (Thorazine) 25 mg PO DAILY [facility] Last Admin: 12/23/16 10:00 Dose: 25 mg Docusate Sodium (Colace) 100 mg PO BID [facility] Last Admin: 12/23/16 10:00 Dose: 100 mg Ferrous Sulfate (Feosol) 325 mg PO BID [facility] Last Admin: 12/23/16 10:00 Dose: 325 mg Guaifenesin/Dextromethorphan (Robitussin Dm) 10 ml PO Q4H PRN PRN Reason: Cough and congestion Last Admin: 12/23/16 10:00 Dose: 10 ml Sodium Chloride (Sodium Chloride 0.9%) 1,000 mls @ 100 mls/hr IV .Q10H [facility] Last Admin: 12/23/16 10:00 Dose: Not Given Azithromycin 500 mg/ Sodium (Chloride) 250 mls @ 250 mls/hr IVPB DAILY@2330 [facility] Last Admin: 12/22/16 22:53 Dose: 250 mls/hr Ceftriaxone Sodium (Rocephin Iv 1 Gm Duplex) 50 mls @ 100 mls/hr IVPB DAILY@ 2300 [facility] Last Admin: 12/22/16 22:16 Dose: 100 mls/hr Insulin Human Regular (Novolin R) 0 unit SC ACHS [facility] PRN Reason: Protocol Last Admin: 12/23/16 09:59 Dose: 1 unit - Labs Labs: 12/23/16 07:49 - Constitutional Appears: Well, Non-toxic, No Acute Distress - Skin Skin Exam: Normal Color, Warm - Additional Findings Additional findings: Vasc: DP and PT pulses palpable 2/4 b/l. CFT < 3 seconds to all digits b/l. Skin temperature warm to cool from proximal to distal b/l. Neuro: Gross sensation diminished b/l. Ortho: No pain on palpation to digits b/l. Derm:Nails 1,2 on the right are grossly elongated and incurvated. Webspaces are clean, dry, intact. Superficial abrasion noted to the medial aspect of the left calf with red base, no drainage, no malodor noted. Assessment and Plan - Assessment and Plan (Free Text) Assessment: 61 y/o female superficial abrasion to anteriomedial left leg. Plan: Patient evaluated and chart reviewed Seen with Dr. Perez Dredressed with xeroform and DSD Wound is stable. Will continue to follow as needed.
[2016-12-23 10:12] LABS: BILIRUBIN,TOTAL < 0.1 mg/dL (0.2-1.3); CARBON DIOXIDE 22 mmol/L (22-30); GFR AFRICAN-AMERICAN 32
[2016-12-23 10:13] LABS: ALKALINE PHOSPHATASE 71 U/L (38-126); ALT/SGPT 28 U/L (9-52); AST/SGOT 59 U/L (14-36); BLOOD UREA NITROGEN 37 mg/dL (7-17); CALCIUM 7.2 mg/dl (8.6-10.4); GLUCOSE,RANDOM 159 mg/dL (65-105); TOTAL PROTEIN 6.1 g/dL (6.3-8.3)
[2016-12-23] MEDS ORDERED: Ergocalciferol 50,000 Intl Units Cap PO SCH (10:45)
--- NOTE | 2016-12-23 13:12 | CP.PCM.CON ---
History of Present Illness - History of Present Illness History of Present Illness: Patient is a 61 year old female with past medical history of schizophrenia and diabetes who presents to the ER accompanied by her brother with complaint of weakness for the past two days. Patient and brother states that she has had a cough that is non-productive, has had occasional diarrhea, and has had decreased appetite since Monday. Patient's brother states that at baseline, patient walks with a walker and can take care of herself for toileting, however recently the patient has needed assistance. Brother also states that the patient was so weak she could hardly get out of a chair by herself. Brother also reports that normally there is a home health aid that comes three times a week for 4 hours each day and assists the patient with bathing. The day prior to admission the home health aid was ill and so the patient tried to shower alone. Per the brother, when he came home from work he found the patient laying in the bathtub unable to get up. Brother helped the patient out of the tub but the patient sustained bruises to her upper back from the fall. Brother also states that the patient's speech is less energetic than normal. PMH: DM 2 SCHIZOPHRENIA PSH: [facility]: TREATING FOR PNEUMONIA AND DEHYDRATION WITH IV SALINE, ANTIBIOTICS PATIENT INCREASINGLY DYSPNEIC LABS SHOW PRE-RENAL AZOTEMIA; PROTEINURIA LIKELY HAS DIABETIC RENAL DISEASE WITH PROTEINURIA AND CHF WILL STOP IV FLUIDS AND ADD IV LASIX PURSUE RENAL WORKUP AND FOLLOW UP LABS CONSULT DICTATED Past Patient History - Past Medical History & Family History Past Medical History?: Yes - Past Social History Smoking Status: Never Smoked - CARDIAC Hx Cardiac Disorders: No - PULMONARY Hx Respiratory Disorders: No - NEUROLOGICAL Hx Neurological Disorder: No - HEENT Hx HEENT Problems: No - RENAL Hx Chronic Kidney Disease: No - ENDOCRINE/METABOLIC Hx Diabetes Mellitus Type 2: Yes - HEMATOLOGICAL/ONCOLOGICAL Hx Blood Disorders: No - INTEGUMENTARY Hx Dermatological Problems: No - MUSCULOSKELETAL/RHEUMATOLOGICAL Hx Musculoskeletal Disorders: Yes Hx Falls: Yes - GASTROINTESTINAL Hx Gastrointestinal Disorders: No - GENITOURINARY/GYNECOLOGICAL Hx Genitourinary Disorders: No - PSYCHIATRIC Hx Psychophysiologic Disorder: Yes Hx Schizophrenia: Yes Hx Substance Use: No - SURGICAL HISTORY Hx Surgeries: Yes Other/Comment: left ankle surgery -2009 - ANESTHESIA Hx Anesthesia: Yes Hx Anesthesia Reactions: No Hx Malignant Hyperthermia: No Has any member of the family had a problem w/ anesthesia?: No Meds Allergies/Adverse Reactions: Allergies Allergy/AdvReac Type Severity Reaction Status Date / Time No Known Allergies Allergy Unverified 12/21/16 21:00 - Medications Medications: Current Medications Benztropine Mesylate (Cogentin) 1 mg PO DAILY [facility] Last Admin: 12/23/16 10:00 Dose: 1 mg Chlorpromazine (Thorazine) 25 mg PO DAILY [facility] Last Admin: 12/23/16 10:00 Dose: 25 mg Docusate Sodium (Colace) 100 mg PO BID [facility] Last Admin: 12/23/16 10:00 Dose: 100 mg Ergocalciferol (Drisdol 50,000 Intl Units Cap) 1 cap PO Q7D [facility] Last Admin: 12/23/16 12:54 Dose: 1 cap Ferrous Sulfate (Feosol) 325 mg PO BID [facility] Last Admin: 12/23/16 10:00 Dose: 325 mg Guaifenesin/Dextromethorphan (Robitussin Dm) 10 ml PO Q4H PRN PRN Reason: Cough and congestion Last Admin: 12/23/16 10:00 Dose: 10 ml Sodium Chloride (Sodium Chloride 0.9%) 1,000 mls @ 100 mls/hr IV .Q10H [facility] Last Admin: 12/23/16 10:00 Dose: Not Given Azithromycin 500 mg/ Sodium (Chloride) 250 mls @ 250 mls/hr IVPB DAILY@2330 [facility] Last Admin: 12/22/16 22:53 Dose: 250 mls/hr Ceftriaxone Sodium (Rocephin Iv 1 Gm Duplex) 50 mls @ 100 mls/hr IVPB DAILY@ 2300 [facility] Last Admin: 12/22/16 22:16 Dose: 100 mls/hr Insulin Human Regular (Novolin R) 0 unit SC ACHS [facility] PRN Reason: Protocol Last Admin: 12/23/16 12:54 Dose: 3 unit Results - Vital Signs Recent Vital Signs: Last Vital Signs Temp 98.3 F 12/23/16 08:51 Pulse 84 12/23/16 08:51 Resp 20 12/23/16 08:51 BP 157/75 H 12/23/16 08:51 Pulse Ox 95 12/23/16 08:51 - Labs Result Diagrams: 12/23/16 07:49 12/23/16 07:49 Labs: Laboratory Results - last 24 hr 12/22/16 12/22/16 12/23/16 16:23 20:58 06:44 WBC RBC Hgb Hct MCV MCH MCHC RDW Plt Count MPV Neut % (Auto) Lymph % (Auto) [place] % (Auto) Eos % (Auto) Baso % (Auto) Neut # Lymph # [place] # Eos # Baso # Differential Comment ESR Sodium Potassium Chloride Carbon Dioxide Anion Gap BUN Creatinine Est GFR ( Amer) Est GFR (Non-Af Amer) POC Glucose (mg/dL) 152 H 211 H 182 H Random Glucose Calcium Total Bilirubin AST ALT Alkaline Phosphatase C-React Prot High Sens Total Protein Albumin Globulin Albumin/Globulin Ratio Vitamin B12 25-OH Vitamin D Total KATHERYN 6 Profile 12/23/16 12/23/16 07:49 11:43 WBC 3.9 L RBC 3.18 L Hgb 8.5 L Hct 26.7 L MCV 83.9 MCH 26.8 L MCHC 32.0 L RDW 15.6 H Plt Count 100 L MPV 11.5 Neut % (Auto) 69.6 Lymph % (Auto) 16.6 L [place] % (Auto) 12.3 H Eos % (Auto) 0.9 Baso % (Auto) 0.6 Neut # 2.7 Lymph # 0.6 L [place] # 0.5 Eos # 0.0 Baso # 0.0 Differential Comment ESR 60 H Sodium 138 Potassium 4.2 Chloride 105 Carbon Dioxide 22 Anion Gap 15 BUN 37 H Creatinine 1.9 H Est GFR ( Amer) 32 Est GFR (Non-Af Amer) 27 POC Glucose (mg/dL) 269 H Random Glucose 159 H Calcium 7.2 L Total Bilirubin < 0.1 L AST 59 H D ALT 28 Alkaline Phosphatase 71 C-React Prot High Sens > 15.00 H Total Protein 6.1 L Albumin 3.1 L Globulin 3.0 Albumin/Globulin Ratio 1.0 Vitamin B12 684 25-OH Vitamin D Total < 12.8 L KATHERYN 6 Profile Negative
[2016-12-23] MEDS ORDERED: Ferric Sodium Gluconat Complex 62.5 mg/5 ml Vial IVPB SCH (13:30)
[2016-12-23] MEDS ORDERED: Albuterol-Ipratrop 3 mg / 0.5 (3 ml) UD INH PRN ×2 (13:42→13:45)
--- NOTE | 2016-12-23 13:57 | CON ---
DATE: 12/23/2016 The patient is a 61-year-old white female who was admitted on 12/21 after a fall. She was having coug nav for several days as well and was brought in by her brother with the fall and she was felt to hav e a pneumonia and is being treated for acute pneumonia. She was found to have prerenal azotemia and renal consult was requested. PAST MEDICAL HISTORY: Diabetes mellitus type 2, and schizophrenia. The patient is a poor historian and cannot get further details. PAST SURGICAL HISTORY: Ankle surgery from trauma. FAMILY HISTORY: Unknown. SOCIAL HISTORY: Negative for smoking, alcohol abuse or illicit drug use. MEDICATIONS: At present include Cogentin, vitamin D2, ferrous sulfate, IV normal saline 100 an hour, IV Zithromax, IV Rocephin, and Thorazine as well. REVIEW OF SYSTEMS: Difficult to obtain. The patient is a poor historian, but no fevers and chills. No chest pain. She has positive dry cough. No nausea, vomiting, diarrhea. No new rashes. She had increasing dyspnea as well. Other review of systems was negative. PHYSICAL EXAMINATION: GENERAL: She is a well-developed white female who is dyspneic and gurgling. VITAL SIGNS: Blood pressure 157/75, temperature 98.3, pulse is 84, pulse ox 95% on room air. HEENT: She is anicteric. Mouth was clear. NECK: No JVD. CHEST: Lung lopez showed diffuse rales and rhonchi, more on the left side. HEART: Regular rhythm, no murmur appreciated. ABDOMEN: Distended. No masses or organomegaly. EXTREMITIES: She had a left lower wound that is bandaged. No pedal edema. NEUROLOGIC: No focal deficits. Chest x-ray showed left basilar opacity and congestive heart failure changes and a small left pleural effusion. LABORATORY DATA: Urinalysis shows 2+ protein, 1+ blood. Hemoglobin of 8.5, white count 3.9, BUN is 45, creatinine 1.8. Electrolytes are unremarkable. GFR is 28, T sat is 8%. IMPRESSION: The patient has congestive heart failure. She has chronic kidney disease, stage III, po ssible acute kidney injury, likely has diabetic nephropathy, and is hypertensive, possibly has hypert ensive renal disease and iron deficiency anemia. PLAN: We will stop the IV fluids, treat with IV Lasix. Do a renal ultrasound, 24-hour urine for pro tein excretion rate and would treat with IV iron. Probably does not need both antibiotics. She has no fever. Cultures are all negative. She did not seem to have pneumonia. We will follow up. Ga Sanchez MD cc: [id number] TT: 12/23/2016 13:56:10 Confirmation # [id number] Dictation # [id number] tn
[2016-12-23] MEDS: Albuterol-Ipratrop 3 mg / 0.5 (3 ml) UD INH SCH (14:05)
--- NOTE | 2016-12-23 14:07 | CP.PCM.PN ---
Addendum entered and electronically signed by Vania Hearn DO 12/24/16 01:45: transferred to tele Addendum entered and electronically signed by Vania Hearn DO 12/24/16 01:08: Trop 0.2760 CK 719 FU Serial ROMIs/EKGs Started Renally dosed therapeutic Lovenox started Cardio consulted- Raheem Hypokalemia/Hypomagesemia K 3.5 Replaced 20mEq KCl Mg 1.5- mildly deficient- will monitor Monitor Addendum entered and electronically signed by Vania Hearn DO 12/24/16 00:00: CXR w/more localized RUL consolidation- will send for D-dimer with other labs. Addendum entered and electronically signed by Vania Hearn DO 12/23/16 23:29: Per nursing - BP 180's/90's- pt assessed - positive for Rhonchi- SaO2 93-94%, ordered CXR, echo for assessment. Original Note: <Fazal Jones - Last Filed: 12/23/16 14:24> Subjective - Date & Time of Evaluation Date of Evaluation: 12/23/16 Time of Evaluation: 09:15 - Subjective Subjective: PGY-1 Medicine Progress Note for Dr. Clay Patient seen and examined at bedside. No acute event overnight. Patient resting in bed comfortably. Patient responding in full answers today. Patient complains of mild cough. Patient states that she ambulates with walker at home. Denies fever/chills, cp, SOB, palpitations, abd pain, n/v/d. Objective - Vital Signs/Intake and Output Vital Signs (last 24 hours): Temp Pulse Resp BP Pulse Ox 98.3 F 84 20 187/74 H 95 12/23/16 08:51 12/23/16 08:51 12/23/16 08:51 12/23/16 13:56 12/23/16 08:51 Intake and Output: 12/23/16 12/23/16 06:59 18:59 Intake Total 1970 Output Total 200 Balance 1770 - Medications Medications: Current Medications Albuterol/Ipratropium (Duoneb 3 Mg/0.5 Mg (3 Ml) Ud) 3 ml INH RQ6 [facility] Albuterol/Ipratropium (Duoneb 3 Mg/0.5 Mg (3 Ml) Ud) 3 ml INH RQ4 PRN PRN Reason: Shortness of Breath Benztropine Mesylate (Cogentin) 1 mg PO DAILY [facility] Last Admin: 12/23/16 10:00 Dose: 1 mg Chlorpromazine (Thorazine) 25 mg PO DAILY [facility] Last Admin: 12/23/16 10:00 Dose: 25 mg Docusate Sodium (Colace) 100 mg PO BID [facility] Last Admin: 12/23/16 10:00 Dose: 100 mg Ergocalciferol (Drisdol 50,000 Intl Units Cap) 1 cap PO Q7D [facility] Last Admin: 12/23/16 12:54 Dose: 1 cap Ferric Sodium Gluconate Complex (Ferrlecit) 125 mg IVPB DAILY [facility] Stop: 12/29/16 13:31 Furosemide (Lasix) 40 mg IVP DAILY [facility] Last Admin: 12/23/16 13:56 Dose: 40 mg Guaifenesin/Dextromethorphan (Robitussin Dm) 10 ml PO Q4H PRN PRN Reason: Cough and congestion Last Admin: 12/23/16 10:00 Dose: 10 ml Azithromycin 500 mg/ Sodium (Chloride) 250 mls @ 250 mls/hr IVPB DAILY@2330 [facility] Last Admin: 12/22/16 22:53 Dose: 250 mls/hr Ceftriaxone Sodium (Rocephin Iv 1 Gm Duplex) 50 mls @ 100 mls/hr IVPB DAILY@ 2300 [facility] Last Admin: 12/22/16 22:16 Dose: 100 mls/hr Insulin Human Regular (Novolin R) 0 unit SC ACHS [facility] PRN Reason: Protocol Last Admin: 12/23/16 12:54 Dose: 3 unit - Labs Labs: 12/23/16 07:49 12/23/16 07:49 - Constitutional Appears: No Acute Distress - Head Exam Head Exam: NORMOCEPHALIC - Eye Exam Eye Exam: EOMI, Normal appearance - ENT Exam ENT Exam: Mucous Membranes Moist - Neck Exam Neck Exam: Normal Inspection - Respiratory Exam Respiratory Exam: Rales, Rhonchi, NORMAL BREATHING PATTERN. absent: Accessory Muscle Use, Respiratory Distress - Cardiovascular Exam Cardiovascular Exam: RRR, +S1, +S2 - GI/Abdominal Exam GI & Abdominal Exam: Soft, Normal Bowel Sounds. absent: Tenderness - Extremities Exam Extremities Exam: Normal Capillary Refill Additional comments: - Constitutional Appears: No Acute Distress pink ulcer medial left ankle edema left lower extremity - Back Exam Back Exam: absent: CVA tenderness (L), CVA tenderness (R) - Neurological Exam Neurological Exam: Alert, Awake, CN II-XII Intact - Psychiatric Exam Psychiatric exam: Flat Affect - Skin Skin Exam: Dry, Normal Color, Warm Additional comments: Abrasions on shoulders bilaterally dry scaly skin on feet Assessment and Plan - Assessment and Plan (Free Text) Plan: 1. Anemia iron 22 L TIBC 273 B12 684 folate 17.5 Ferrlicet 125 mg IV 2. Renal insufficiency BUN/ Cr: 37/1.9 Nephro consult, Dr. Larsen, help appreciated Lasix given by Nephro, dc fluids 3. Cough with suspicion for pneumonia CXR repeated for rales and desaturation CXR: obscured left costophrenic angle (see full report) procalcitonin 0.[address] chest: mild basilar atelectasis, mild right lung base atelectasis. Small hiatal hernia (see full report) start azithromycin and ceftriaxone Duonebs RQ6 and RQ4 PRN 4. Hx schizophrenia cogentin for rigidity on exam- possible medication side effect continue chlorpromazine 5. s/p fall CT head: chronic microvascular changes, dilation of the ventricles (see full report) Neuro consult, Dr Reynoso, help appreciated Neurosurgery consult, Dr. Franks, help appreciated - discussed case with Dr. Franks, he stated that due to other medical problems there is no benefit for intervention at this point. He will re-evaluate patient with right before discharge or have her follow up as outpatient to formulate plan of care. 6. Diabetes ISS with accuchecks diabetic diet HA1C 9.3 7. Leg wound check venous doppler wound care consult 8. Onychomycosis Podiatry consult, Dr. Perez, help appreciated 9. Prophylactic Measures fall precautions physical therapy case management referral diabetic diet Colace 100 mg PO BID PT/OT <Meng Yao - Last Filed: 12/24/16 09:39> Objective - Vital Signs/Intake and Output Vital Signs (last 24 hours): Temp Pulse Resp BP Pulse Ox 98.5 F 90 20 164/72 H 99 12/24/16 07:15 12/24/16 07:15 12/24/16 07:15 12/24/16 07:15 12/24/16 07:15 Intake and Output: 12/24/16 12/24/16 06:59 18:59 Intake Total 500 Output Total 1320 Balance -820 - Medications Medications: Current Medications Albuterol Sulfate (Albuterol 0.042% Inhal Soha (1.25mg/3ml) Ud) 1.25 mg INH RQ4 PRN PRN Reason: Wheezing Albuterol/Ipratropium (Duoneb 3 Mg/0.5 Mg (3 Ml) Ud) 3 ml INH RQ6 [facility] Last Admin: 12/24/16 07:20 Dose: 3 ml Amlodipine Besylate (Norvasc) 5 mg PO DAILY [facility] Benztropine Mesylate (Cogentin) 1 mg PO DAILY [facility] Last Admin: 12/23/16 10:00 Dose: 1 mg Chlorpromazine (Thorazine) 25 mg PO DAILY [facility] Last Admin: 12/23/16 10:00 Dose: 25 mg Docusate Sodium (Colace) 100 mg PO BID [facility] Last Admin: 12/23/16 17:21 Dose: 100 mg Enoxaparin Sodium (Lovenox) 70 mg SC DAILY [facility] Ergocalciferol (Drisdol 50,000 Intl Units Cap) 1 cap PO Q7D [facility] Last Admin: 12/23/16 12:54 Dose: 1 cap Ferric Sodium Gluconate Complex (Ferrlecit) 125 mg IVPB DAILY [facility] Stop: 12/31/16 16:00 Last Admin: 12/23/16 19:01 Dose: 125 mg Furosemide (Lasix) 40 mg IVP DAILY [facility] Last Admin: 12/23/16 13:56 Dose: 40 mg Guaifenesin/Dextromethorphan (Robitussin Dm) 10 ml PO Q4H PRN PRN Reason: Cough and congestion Last Admin: 12/23/16 10:00 Dose: 10 ml Azithromycin 500 mg/ Sodium (Chloride) 250 mls @ 250 mls/hr IVPB DAILY@2330 [facility] Last Admin: 12/24/16 01:55 Dose: 250 mls/hr Ceftriaxone Sodium (Rocephin Iv 1 Gm Duplex) 50 mls @ 100 mls/hr IVPB DAILY@ 2300 [facility] Last Admin: 12/23/16 22:25 Dose: 100 mls/hr Sodium Chloride (Sodium Chloride 0.45%) 1,000 mls @ 40 mls/hr IV .Q24H [facility] Insulin Human Regular (Novolin R) 0 unit SC ACHS [facility] PRN Reason: Protocol Last Admin: 12/24/16 08:20 Dose: 3 unit Potassium Chloride (K-Dur 20 Meq Er Tab) 40 meq PO DAILY [facility] Sitagliptin Phosphate (Januvia) 50 mg PO DAILY [facility] - Labs Labs: 12/24/16 06:08 12/24/16 06:08 Attending/Attestation - Attestation I have personally seen and examined this patient.: Yes I have fully participated in the care of the patient.: Yes I have reviewed all pertinent clinical information, including history, physical exam and plan: Yes Notes (Text): 12/24/16 09:34 patient was seen and examined at bedside with the resident. this is a late computer entry. Patient denies any chest discomfort, palpitation, dizziness, headache. on physical examination patient says extensive rhonchi bilaterally. We will continue treatment with IV antibiotics Patient's blood pressure is elevated and we will add Norvasc titrate the medication for optimal control vitamin D is very low and we will replace vitamin D. discussed the plan of care with the resident. I agree with the above history and physical and assessment/plan by the resident.
--- NOTE | 2016-12-23 14:51 | RAD ---
HISTORY: rales COMPARISON: 12/21/2016 FINDINGS: LUNGS: Hazy opacity overlying the right upper lung. Increased pulmonary vascular congestion. PLEURA: No significant pleural effusion identified, no pneumothorax apparent. CARDIOVASCULAR: Enlarged heart. OSSEOUS STRUCTURES: The osseous structures demonstrate degenerative changes. VISUALIZED UPPER ABDOMEN: Upper abdomen is suboptimally evaluated. OTHER FINDINGS: None. IMPRESSION: New hazy opacity overlying the right upper lung. Infectious etiology should be considered. Followup to resolution recommended.
[2016-12-23 18:35] LABS: RAPID PLASMA REAGIN NONREACTIVE (NONREACTIVE)
[2016-12-23] MEDS: Ferric Sodium Gluconat Complex 62.5 mg/5 ml Vial IVPB SCH (19:01)
[2016-12-23] MEDS: cefTRIAXone IV 1 gm in Dextros 50 ML IVPB SCH (22:25)
[2016-12-24 00:20] LABS: BASO % 0.5 % (0.0-2.0); HEMATOCRIT 31.1 % (34.0-47.0); LYMPH # 0.5 K/uL (1.0-4.3); LYMPH % 4.7 % (20.0-40.0); MEAN CELL VOLUME 83.8 fL (81.0-99.0); MEAN CORPUSCULAR HEMOGLOBIN 27.2 pg (27.0-31.0); MEAN CORPUSCULAR HGB CONC 32.4 g/dL (33.0-37.0); MEAN PLATELET VOLUME 10.8 fL (7.2-11.7); MONO # 0.9 K/uL (0.0-0.8); MONO % 9.6 % (0.0-10.0); PLATELET COUNT 109 K/uL (130-400); RED CELL DISTRIBUTION WIDTH 15.6 % (11.5-14.5); WHITE BLOOD COUNT 9.7 K/uL (4.8-10.8)
[2016-12-24 00:31] LABS: POTASSIUM 3.5 mmol/L (3.6-5.2)
[2016-12-24 00:33] LABS: BILIRUBIN,TOTAL 0.3 mg/dL (0.2-1.3); CALCIUM 7.5 mg/dl (8.6-10.4); PHOSPHOROUS 3.2 mg/dL (2.5-4.5); TOTAL PROTEIN 6.5 g/dL (6.3-8.3)
[2016-12-24 00:34] LABS: MAGNESIUM 1.5 mg/dL (1.6-2.3)
[2016-12-24] MEDS ORDERED: Potassium Chloride 20 mEq ER Tab PO ONE (00:57)
--- NOTE | 2016-12-24 01:18 | CP.PCM.PN ---
Subjective - Date & Time of Evaluation Date of Evaluation: 12/23/16 Time of Evaluation: 21:10 - Subjective Subjective: Very low Vitamin D and replacement is given. No left hemiparesis is seen. 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 Objective - Vital Signs/Intake and Output Vital Signs (last 24 hours): Temp Pulse Resp BP Pulse Ox 97.9 F 103 H 22 183/78 H 95 12/23/16 16:03 12/23/16 19:27 12/23/16 16:03 12/23/16 19:27 12/23/16 16:03 Intake and Output: 12/23/16 12/24/16 18:59 06:59 Intake Total 680 400 Output Total 700 Balance 680 -300 - Medications Medications: Current Medications Albuterol/Ipratropium (Duoneb 3 Mg/0.5 Mg (3 Ml) Ud) 3 ml INH RQ6 [facility] Last Admin: 12/23/16 14:05 Dose: 3 ml Albuterol/Ipratropium (Duoneb 3 Mg/0.5 Mg (3 Ml) Ud) 3 ml INH RQ4 PRN PRN Reason: Shortness of Breath Amlodipine Besylate (Norvasc) 5 mg PO DAILY [facility] Benztropine Mesylate (Cogentin) 1 mg PO DAILY [facility] Last Admin: 12/23/16 10:00 Dose: 1 mg Chlorpromazine (Thorazine) 25 mg PO DAILY [facility] Last Admin: 12/23/16 10:00 Dose: 25 mg Docusate Sodium (Colace) 100 mg PO BID [facility] Last Admin: 12/23/16 17:21 Dose: 100 mg Enoxaparin Sodium (Lovenox) 70 mg SC DAILY [facility] Ergocalciferol (Drisdol 50,000 Intl Units Cap) 1 cap PO Q7D [facility] Last Admin: 12/23/16 12:54 Dose: 1 cap Ferric Sodium Gluconate Complex (Ferrlecit) 125 mg IVPB DAILY [facility] Stop: 12/31/16 16:00 Last Admin: 12/23/16 19:01 Dose: 125 mg Furosemide (Lasix) 40 mg IVP DAILY [facility] Last Admin: 12/23/16 13:56 Dose: 40 mg Guaifenesin/Dextromethorphan (Robitussin Dm) 10 ml PO Q4H PRN PRN Reason: Cough and congestion Last Admin: 12/23/16 10:00 Dose: 10 ml Azithromycin 500 mg/ Sodium (Chloride) 250 mls @ 250 mls/hr IVPB DAILY@2330 [facility] Last Admin: 12/22/16 22:53 Dose: 250 mls/hr Ceftriaxone Sodium (Rocephin Iv 1 Gm Duplex) 50 mls @ 100 mls/hr IVPB DAILY@ 2300 [facility] Last Admin: 12/23/16 22:25 Dose: 100 mls/hr Insulin Human Regular (Novolin R) 0 unit SC ACHS [facility] PRN Reason: Protocol Last Admin: 12/23/16 21:51 Dose: Not Given - Labs Labs: 12/24/16 00:08 12/24/16 00:08 Assessment and Plan (1) Anemia Status: Acute (2) Generalized weakness Status: Acute (3) Pneumonia Status: Acute (4) Thrombocytopenia Status: Acute (5) Onychomycosis Status: Acute (6) Schizophrenia Status: Acute (7) Diabetes mellitus Status: Chronic
[2016-12-24 01:19] LABS: RBC URINE < 1 /hpf (0-3); URINE BACTERIA RARE (<OCC); URINE BILIRUBIN NEGATIVE (NEGATIVE); URINE BLOOD 1+ (NEGATIVE); URINE COLOR Yellow (YELLOW); URINE GLUCOSE (UA) 1+ mg/dL (Normal); URINE KETONE NEGATIVE (NEGATIVE); URINE LEUKOCYTE ESTERASE NEG Leu/uL (Negative); URINE PROTEIN 1+ mg/dL (NEGATIVE); URINE UROBILINOGEN NORMAL mg/dL (0.2-1.0); WBC URINE 4 /hpf (0-5)
[2016-12-24] MEDS: Azithromycin 500 MG in Sodium Chloride 0.9% 250 ML IVPB SCH ×2 (01:55→22:38)
[2016-12-24 02:52] LABS: LARGE PLATELETS PRESENT; NEUTROPHIL 83 % (50-75); TOTAL CELLS COUNTED 100
[2016-12-24] MEDS: Albuterol-Ipratrop 3 mg / 0.5 (3 ml) UD INH SCH ×3 (04:08→13:17)
--- NOTE | 2016-12-24 04:12 | CP.PCM.CON ---
History of Present Illness - History of Present Illness History of Present Illness: I was asked to see patient for shortness of breath. Patient is a 61 year old female wtih a history of HTN, bipolar disorder who presented with weakness. The patient was found in a bathtub by her brother. The patient complained of dyspnea at rest. She was transferred to telemetry for further monitoring. The patient denies chest pain. Review of Systems - Constitutional Constitutional: absent: As Per HPI, Anorexia, Chills, Daytime Sleepiness, Excessive Sweating, Fatigue, Fever, Frequent Falls, Headache, Increased Appetite , Lethargy, Malaise, Night Sweats, Snoring, Sleep Apnea, Weight Gain, Weight Loss, Weakness, Other - EENT Eyes: absent: As Per HPI, Blind Spots, Blurred Vision, Change in Vision, Decreased Night Vision, Diplopia, Discharge, Dry Eye, Exophthalmos, Floaters, Irritation, Itchy Eyes, Loss of Peripheral Vision, Pain, Photophobia, Requires Corrective Lenses, Sees Flashes, Spots in Vision, Tunnel Vision, Other Visual Disturbances, Loss of Vision, Other Ears: absent: As Per HPI, Decreased Hearing, Ear Discharge, Ear Pain, Tinnitus, Abnormal Hearing, Disequilibrium, Dizziness, Other Nose/Mouth/Throat: absent: As Per HPI, Epistaxis, Nasal Congestion, Nasal Discharge, Nasal Obstruction, Nasal Trauma, Nose Pain, Post Nasal Drip, Sinus Pain, Sinus Pressure, Bleeding Gums, Change in Voice, Dental Pain, Dry Mouth, Dysphagia, Halitosis, Hoarsness, Lip Swelling, Mouth Lesions, Mouth Pain, Odynophagia, Sore Throat, Throat Swelling, Tongue Swelling, Facial Pain, Neck Pain, Neck Mass, Other - Cardiovascular Cardiovascular: absent: As Per HPI, Acrocyanosis, Chest Pain, Chest Pain at Rest , Chest Pain with Activity, Claudication, Diaphoresis, Dyspnea, Dyspnea on Exertion, Edema, Irregular Heart Rhythm, Pain Radiating to Arm/Neck/Jaw, Leg Edema, Leg Ulcers, Lightheadedness, Orthopnea, Palpitations, Paroxysmal Nocturnal Dyspnea, Pedal Edema, Radiating Pain, Rapid Heart Rate, Slow Heart Rate, Syncope, Other - Respiratory Respiratory: Dyspnea - Gastrointestinal Gastrointestinal: absent: As Per HPI, Abdominal Pain, Belching, Bloating, Change in Bowel Habits, Change in Stool Character, Coffee Ground Emesis, Constipation, Cramping, Diarrhea, Dyspepsia, Dysphagia, Early Satiety, Excessive Flatus, Fecal Incontinence, Heartburn, Hematemesis, Hematochezia, Loose Stools, Melena, Nausea, Odynophagia, Temesmus, Vomiting, Other - Musculoskeletal Musculoskeletal: absent: As Per HPI, Abnormal Gait, Arthralgias, Atrophy, Back Pain, Deformity, Joint Swelling, Limited Range of Motion, Loss of Height, Muscle Cramps, Muscle Weakness, Myalgias, Neck Pain, Numbness, Radiating Pain into Limb, Stiffness, Tingling, Other - Integumentary Integumentary: absent: As Per HPI, Acne, Alopecia, Bleeding Lesions, Change in Hair, Change in Nails, Change in Pigmentation, Changing Lesions, Dry Skin, Erythema, Furuncle, Hirsutism, Lesions, New Lesions, Non-Healing Lesions, Photosensitivity, Pruritus, Rash, Skin Pain, Skin Ulcer, Sores, Striae, Swelling , Unusual Bruising, Wounds, Jaundice, Other - Neurological Neurological: absent: As Per HPI, Abnormal Gait, Abnormal Hearing, Abnormal Movements, Abnormal Speech, Behavioral Changes, Burning Sensations, Confusion, Convulsions, Disequilibrium, Dizziness, Numbness, Focal Weakness, Frequent Falls , Headaches, Lack of Coordination, Loss of Vision, Memory Loss, Paresthesias, Radicular Pain, Restless Legs, Sensory Deficit, Syncope, Tingling, Tremor, Vertigo, Weakness, Other Visual Disturbances, Other - Psychiatric Psychiatric: absent: As Per HPI, Abnormal Sleep Pattern, Anhedonia, Anxiety, Auditory Hallucinations, Behavioral Changes, Change in Appetite, Change in Libido, Confusion, Depression, Difficulty Concentrating, Hallucinations, Homicidal Ideation, Hopelessness, Irritability, Memory Loss, Mood Swings, Panic Attacks, Paranoia, Suicidal Ideation, Visual Hallucinations, Tactile Hallucinations, Other - Endocrine Endocrine: absent: As Per HPI, Change in Body Appearance, Change in Libido, Cold Intolorance, Deepening of Voice, Excessive Sweating, Fatigue, Flushing, Heat Intolorance, Increase in Ring/Shoe/Hat Size, Palpitations, Polydipsia, Polyphagia, Polyuria, Other - Hematologic/Lymphatic Hematologic: absent: As Per HPI, Easy Bleeding, Easy Bruising, Lymphadenopathy, Other Past Patient History - Past Medical History & Family History Past Medical History?: Yes - Past Social History Smoking Status: Never Smoked - CARDIAC Hx Cardiac Disorders: No - PULMONARY Hx Respiratory Disorders: No - NEUROLOGICAL Hx Neurological Disorder: No - HEENT Hx HEENT Problems: No - RENAL Hx Chronic Kidney Disease: No - ENDOCRINE/METABOLIC Hx Diabetes Mellitus Type 2: Yes - HEMATOLOGICAL/ONCOLOGICAL Hx Blood Disorders: No - INTEGUMENTARY Hx Dermatological Problems: No - MUSCULOSKELETAL/RHEUMATOLOGICAL Hx Musculoskeletal Disorders: Yes Hx Falls: Yes - GASTROINTESTINAL Hx Gastrointestinal Disorders: No - GENITOURINARY/GYNECOLOGICAL Hx Genitourinary Disorders: No - PSYCHIATRIC Hx Psychophysiologic Disorder: Yes Hx Schizophrenia: Yes Hx Substance Use: No - SURGICAL HISTORY Hx Surgeries: Yes Other/Comment: left ankle surgery -2009 - ANESTHESIA Hx Anesthesia: Yes Hx Anesthesia Reactions: No Hx Malignant Hyperthermia: No Has any member of the family had a problem w/ anesthesia?: No Meds Allergies/Adverse Reactions: Allergies Allergy/AdvReac Type Severity Reaction Status Date / Time No Known Allergies Allergy Unverified 12/21/16 21:00 - Medications Medications: Current Medications Albuterol/Ipratropium (Duoneb 3 Mg/0.5 Mg (3 Ml) Ud) 3 ml INH RQ6 [facility] Last Admin: 12/24/16 04:08 Dose: 3 ml Albuterol/Ipratropium (Duoneb 3 Mg/0.5 Mg (3 Ml) Ud) 3 ml INH RQ4 PRN PRN Reason: Shortness of Breath Amlodipine Besylate (Norvasc) 5 mg PO DAILY [facility] Benztropine Mesylate (Cogentin) 1 mg PO DAILY [facility] Last Admin: 12/23/16 10:00 Dose: 1 mg Chlorpromazine (Thorazine) 25 mg PO DAILY [facility] Last Admin: 12/23/16 10:00 Dose: 25 mg Docusate Sodium (Colace) 100 mg PO BID [facility] Last Admin: 12/23/16 17:21 Dose: 100 mg Enoxaparin Sodium (Lovenox) 70 mg SC DAILY [facility] Ergocalciferol (Drisdol 50,000 Intl Units Cap) 1 cap PO Q7D [facility] Last Admin: 12/23/16 12:54 Dose: 1 cap Ferric Sodium Gluconate Complex (Ferrlecit) 125 mg IVPB DAILY [facility] Stop: 12/31/16 16:00 Last Admin: 12/23/16 19:01 Dose: 125 mg Furosemide (Lasix) 40 mg IVP DAILY [facility] Last Admin: 12/23/16 13:56 Dose: 40 mg Guaifenesin/Dextromethorphan (Robitussin Dm) 10 ml PO Q4H PRN PRN Reason: Cough and congestion Last Admin: 12/23/16 10:00 Dose: 10 ml Azithromycin 500 mg/ Sodium (Chloride) 250 mls @ 250 mls/hr IVPB DAILY@2330 [facility] Last Admin: 12/24/16 01:55 Dose: 250 mls/hr Ceftriaxone Sodium (Rocephin Iv 1 Gm Duplex) 50 mls @ 100 mls/hr IVPB DAILY@ 2300 [facility] Last Admin: 12/23/16 22:25 Dose: 100 mls/hr Insulin Human Regular (Novolin R) 0 unit SC ACHS [facility] PRN Reason: Protocol Last Admin: 12/23/16 21:51 Dose: Not Given Physical Exam - Constitutional Appears: Non-toxic - Head Exam Head Exam: NORMAL INSPECTION - Eye Exam Eye Exam: Normal appearance - ENT Exam ENT Exam: Mucous Membranes Moist - Neck Exam Neck exam: Positive for: Full Rom - Respiratory Exam Respiratory Exam: Decreased Breath Sounds - Cardiovascular Exam Cardiovascular Exam: REGULAR RHYTHM - GI/Abdominal Exam GI & Abdominal Exam: Normal Bowel Sounds - Rectal Exam Rectal Exam: Deferred - Extremities Exam Extremities exam: Negative for: pedal edema - Back Exam Back exam: NORMAL INSPECTION - Neurological Exam Neurological exam: Alert - Psychiatric Exam Psychiatric exam: Normal Affect - Skin Skin Exam: Normal Color Results - Vital Signs Recent Vital Signs: Last Vital Signs Temp 99.4 F 12/24/16 03:30 Pulse 96 H 12/24/16 03:30 Resp 20 12/24/16 03:30 BP 175/68 H 12/24/16 03:30 Pulse Ox 96 12/24/16 03:30 - Labs Result Diagrams: 12/24/16 06:08 12/24/16 06:08 Labs: Laboratory Results - last 24 hr 12/23/16 12/23/16 12/23/16 06:44 07:49 11:43 WBC 3.9 L RBC 3.18 L Hgb 8.5 L Hct 26.7 L MCV 83.9 MCH 26.8 L MCHC 32.0 L RDW 15.6 H Plt Count 100 L MPV 11.5 Neut % (Auto) 69.6 Lymph % (Auto) 16.6 L [place] % (Auto) 12.3 H Eos % (Auto) 0.9 Baso % (Auto) 0.6 Neut # 2.7 Lymph # 0.6 L [place] # 0.5 Eos # 0.0 Baso # 0.0 Neutrophils % (Manual) Band Neutrophils % Lymphocytes % (Manual) Monocytes % (Manual) Differential Comment Platelet Estimate Large Platelets Anisocytosis (manual) ESR 60 H D-Dimer, Quantitative Sodium 138 Potassium 4.2 Chloride 105 Carbon Dioxide 22 Anion Gap 15 BUN 37 H Creatinine 1.9 H Est GFR ( Amer) 32 Est GFR (Non-Af Amer) 27 POC Glucose (mg/dL) 182 H 269 H Random Glucose 159 H Calcium 7.2 L Phosphorus Magnesium Total Bilirubin < 0.1 L AST 59 H D ALT 28 Alkaline Phosphatase 71 Total Creatine Kinase CK-MB (Mass) Troponin I, Quant C-React Prot High Sens > 15.00 H NT-Pro-B Natriuret Pep Total Protein 6.1 L Albumin 3.1 L Globulin 3.0 Albumin/Globulin Ratio 1.0 Vitamin B12 684 25-OH Vitamin D Total < 12.8 L Urine Color Urine Clarity Urine pH Ur Specific Paia Urine Protein Urine Glucose (UA) Urine Ketones Urine Blood Urine Nitrate Urine Bilirubin Urine Urobilinogen Ur Leukocyte Esterase Urine WBC (Auto) Urine RBC (Auto) Ur Squamous Epith Cells Amorphous Sediment Urine Bacteria Rheum Arthritis Panel Negative KATHERYN 6 Profile Negative RPR Nonreactive 12/23/16 12/23/16 12/24/16 17:00 21:30 00:08 WBC 9.7 D RBC 3.71 L Hgb 10.1 L Hct 31.1 L MCV 83.8 MCH 27.2 MCHC 32.4 L RDW 15.6 H Plt Count 109 L MPV 10.8 Neut % (Auto) 85.2 H Lymph % (Auto) 4.7 L [place] % (Auto) 9.6 Eos % (Auto) 0.0 Baso % (Auto) 0.5 Neut # 8.3 H Lymph # 0.5 L [place] # 0.9 H Eos # 0.0 Baso # 0.0 Neutrophils % (Manual) 83 H Band Neutrophils % 1 Lymphocytes % (Manual) 4 L Monocytes % (Manual) 12 H Differential Comment Platelet Estimate Slightly decreased L Large Platelets Present Anisocytosis (manual) Slight ESR D-Dimer, Quantitative Sodium 137 Potassium 3.5 L Chloride 98 Carbon Dioxide 26 Anion Gap 17 BUN 38 H Creatinine 1.8 H Est GFR ( Amer) 34 Est GFR (Non-Af Amer) 28 POC Glucose (mg/dL) 207 H 288 H Random Glucose 265 H Calcium 7.5 L Phosphorus 3.2 Magnesium 1.5 L Total Bilirubin 0.3 AST 55 H ALT 19 Alkaline Phosphatase 80 Total Creatine Kinase 719 H CK-MB (Mass) 2.92 Troponin I, Quant 0.2760 H* C-React Prot High Sens NT-Pro-B Natriuret Pep 4630 H Total Protein 6.5 Albumin 3.3 L Globulin 3.2 Albumin/Globulin Ratio 1.0 Vitamin B12 25-OH Vitamin D Total Urine Color Urine Clarity Urine pH Ur Specific Paia Urine Protein Urine Glucose (UA) Urine Ketones Urine Blood Urine Nitrate Urine Bilirubin Urine Urobilinogen Ur Leukocyte Esterase Urine WBC (Auto) Urine RBC (Auto) Ur Squamous Epith Cells Amorphous Sediment Urine Bacteria Rheum Arthritis Panel KATHERYN 6 Profile RPR 12/24/16 12/24/16 00:47 00:51 WBC RBC Hgb Hct MCV MCH MCHC RDW Plt Count MPV Neut % (Auto) Lymph % (Auto) [place] % (Auto) Eos % (Auto) Baso % (Auto) Neut # Lymph # [place] # Eos # Baso # Neutrophils % (Manual) Band Neutrophils % Lymphocytes % (Manual) Monocytes % (Manual) Differential Comment Platelet Estimate Large Platelets Anisocytosis (manual) ESR D-Dimer, Quantitative 360 H Sodium Potassium Chloride Carbon Dioxide Anion Gap BUN Creatinine Est GFR ( Amer) Est GFR (Non-Af Amer) POC Glucose (mg/dL) Random Glucose Calcium Phosphorus Magnesium Total Bilirubin AST ALT Alkaline Phosphatase Total Creatine Kinase CK-MB (Mass) Troponin I, Quant C-React Prot High Sens NT-Pro-B Natriuret Pep Total Protein Albumin Globulin Albumin/Globulin Ratio Vitamin B12 25-OH Vitamin D Total Urine Color Yellow Urine Clarity Hazy Urine pH 5.0 Ur Specific Paia 1.008 Urine Protein 1+ H Urine Glucose (UA) 1+ Urine Ketones Negative Urine Blood 1+ H Urine Nitrate Negative Urine Bilirubin Negative Urine Urobilinogen Normal Ur Leukocyte Esterase Neg Urine WBC (Auto) 4 Urine RBC (Auto) < 1 Ur Squamous Epith Cells < 1 Amorphous Sediment Few H Urine Bacteria Rare Rheum Arthritis Panel KATHERYN 6 Profile RPR - EKG Data EKG Interpreted by: Myself EKG shows normal: Sinus rhythm Assessment & Plan (1) Dyspnea Assessment and Plan: recommend evealuation of left ventricular function and wall motion abnormaliites. check echocardiogram Status: Acute (2) Diabetes mellitus Assessment and Plan: risk factor for CAD. Status: Chronic
[2016-12-24] MEDS ORDERED: Albuterol 0.042% Inhal Sol (1.25 mg/3 mL) UD INH PRN (05:28)
[2016-12-24 06:19] LABS: BASO % 0.3 % (0.0-2.0); HEMATOCRIT 30.1 % (34.0-47.0); LYMPH # 0.6 K/uL (1.0-4.3); LYMPH % 5.5 % (20.0-40.0); MEAN CELL VOLUME 82.9 fL (81.0-99.0); MEAN CORPUSCULAR HEMOGLOBIN 26.9 pg (27.0-31.0); MEAN CORPUSCULAR HGB CONC 32.5 g/dL (33.0-37.0); MEAN PLATELET VOLUME 10.3 fL (7.2-11.7); MONO # 1.1 K/uL (0.0-0.8); MONO % 10.1 % (0.0-10.0); PLATELET COUNT 111 K/uL (130-400); RED CELL DISTRIBUTION WIDTH 15.5 % (11.5-14.5); WHITE BLOOD COUNT 10.5 K/uL (4.8-10.8)
[2016-12-24 06:23] LABS: CHLORIDE 101 mmol/L (98-107)
[2016-12-24 06:24] LABS: SODIUM 140 mmol/L (132-148)
[2016-12-24 06:25] LABS: POTASSIUM 3.3 mmol/L (3.6-5.2)
[2016-12-24 06:27] LABS: ALB/GLOB RATIO 1.1 (1.0-2.1); ALKALINE PHOSPHATASE 76 U/L (38-126); ALT/SGPT 18 U/L (9-52); AST/SGOT 48 U/L (14-36); BILIRUBIN,TOTAL < 0.1 mg/dL (0.2-1.3); BLOOD UREA NITROGEN 35 mg/dL (7-17); CARBON DIOXIDE 27 mmol/L (22-30); GFR AFRICAN-AMERICAN 37; TOTAL PROTEIN 6.4 g/dL (6.3-8.3)
[2016-12-24 06:28] LABS: CALCIUM 7.5 mg/dl (8.6-10.4); GLUCOSE,RANDOM 235 mg/dL (65-105); PHOSPHOROUS 3.5 mg/dL (2.5-4.5)
[2016-12-24] MEDS ORDERED: Potassium Chloride 20 mEq/15 ml LIQ UD PO ONE (06:44)
[2016-12-24] MEDS: (Novolin R) Insulin Human Regular 100 units/ml vial SC SCH ×4 (08:20→21:18)
[2016-12-24 09:13] LABS: NEUTROPHIL 91 % (50-75); TOTAL CELLS COUNTED 100
[2016-12-24 09:14] LABS: GIANT PLATELETS PRESENT; LARGE PLATELETS PRESENT
[2016-12-24] MEDS ORDERED: Sodium Chloride 0.45% 1,000 ML IV SCH (09:30)
--- NOTE | 2016-12-24 10:02 | RAD ---
HISTORY: SOB COMPARISON: Comparison chest 12/23/2016 FINDINGS: LUNGS: Patchy infiltrate right upper lobe. Decreased pulmonary vascular congestion. PLEURA: No significant pleural effusion identified, no pneumothorax apparent. CARDIOVASCULAR: Upper lobe cardiomegaly OSSEOUS STRUCTURES: No significant abnormalities. VISUALIZED UPPER ABDOMEN: Normal. OTHER FINDINGS: None. IMPRESSION: . Patchy infiltrate right
--- NOTE | 2016-12-24 10:03 | PN ---
DATE: 12/24/2016 I have known this patient for many years. I just found out this morning that she was put in the hospital, I never got the message. She is here, uncomfortable. She has a few things going on; probable pneumonia, renal insufficiency and PA, thrombocytopenia, anemia, schizophrenia history, and she is weak. MEDICATIONS: She is currently on IV fluids, albuterol, Cogentin, Colace, Drisdol, DuoNeb, iron, potassium replacement, Lasix, Lovenox, Norvasc, insulin with the elevated blood sugars, also here for hypertension on Norvasc, guaifenesin, Thorazine, Zithromax IV, Rocephin IV. She is being seen by cardiology, I will call on pulmonology and renal is on the case. PHYSICAL EXAMINATION: VITAL SIGNS: Temp 98.5, 90 pulse, 164/72 blood pressure, 20 respiratory rate, 99% O2 sat on room air. HEAD: Atraumatic, normocephalic. GENERAL: She is alert. She knew me. Throat is moist. NECK: Supple. HEART: Regular rate. LUNGS: Decreased breath sounds but clear. ABDOMEN: Soft, obese, nontender. EXTREMITIES: No edema. LABORATORY DATA: She has a white count of 10.5, hemoglobin 9.8, hematocrit 30.1 , platelets are 111. D-dimer was 260, sodium is 140, potassium 2.3 being replaced. BUN is down to 35, creatinine down to 1.7, improving. GFR is up to 30. Sugars have been elevated 235, I will adjust her diabetes medication, magnesium is 2.5. AST is 48, ALT is 18, alk phos 70. Two sets of troponin: 0.27, 0.24. I will see what the diplomatic officer wants to do about that. BNP is 4630, she is on IV Lasix. Negative for KATHERYN, rheumatology, negative RPR. No growth in urine or blood. She is being seen by cardio, renal. I will call on pulmonary. She will start physical therapy. I am , checking the labs tomorrow. See what the 2D echo and the ultrasounds sounds show. I will adjust her medication for diabetes. Malik S Gusman DO cc: [id number] TT: 12/24/2016 10:03:05 Confirmation # [id number] Dictation # [id number] jn MTDD
[2016-12-24] MEDS: Ferric Sodium Gluconat Complex 62.5 mg/5 ml Vial IVPB SCH (11:01)
[2016-12-24] MEDS: Enoxaparin 80 mg Syringe SC SCH (11:02)
[2016-12-24] MEDS: Potassium Chloride 20 mEq ER Tab PO SCH (11:16)
[2016-12-24] MEDS: guaiFENesin DM 200 mg-20 mg/10 ml UD PO PRN (13:55)
--- NOTE | 2016-12-24 14:57 | US ---
PROCEDURE: Renal ultrasound HISTORY: LEN COMPARISON: No prior TECHNIQUE: Transabdominal sonographic evaluation of the kidneys performed. FINDINGS: Right kidney measures 9.7 x 4.2 x 4.2 cm. Left kidney measures 9.5 x 4.3 x4 0.1 cm. Both kidneys exhibit echogenic parenchyma suggesting medical renal disease. Clinical correlation recommended. No evidence of nephrolithiasis or hydronephrosis. No obvious renal mass or collection Technologist notation indicates in collapsed bladder secondary to unclamped situ William catheter IMPRESSION: Bilateral echogenic renal parenchyma suggesting underlying medical renal disease.
--- NOTE | 2016-12-24 15:54 | CARD ---
APPROVED REPORT EXAM: Two-dimensional and M-mode echocardiogram with Doppler and color Doppler. Other Information Quality : AverageRhythm : NSR INDICATION Dyspnea Congestive Heart Failure weakness, anemia, thrombocytopenia, pneumonia, r/o chf RISK FACTORS Diabetes M-Mode DIMENSIONS RVDd1.17 (2.1-3.2cm)Left Atrium (MM)3.98 (2.5-4.0cm) IVSd1.24 (0.7-1.1cm)Aortic Root2.73 (2.2-3.7cm) LVDd5.11 (4.0-5.6cm)Aortic Cusp Exc.1.18 (1.5-2.0cm) PWd1.20 (0.7-1.1cm)FS (%) 36 % LVDs3.25 (2.0-3.8cm)LVEF (%)66 (>50%) Mitral Valve MV E Lflmsubt471.1cm/sMV A Uizppzxl150.0cm/sE/A ratio1.1 TDI E/Lateral E'0.0E/Medial E'0.0 Tricuspid Valve TR Peak Amgibdon142pu/sTR Peak Gr.[id number] LEFT VENTRICLE There is borderline concentric left ventricular hypertrophy. The left ventricular systolic function is normal. The left ventricular ejection fraction is within the normal range. There is normal LV segmental wall motion. Transmitral Doppler flow pattern is normal for age. RIGHT VENTRICLE The right ventricle is normal size. The right ventricular systolic function is normal. ATRIA The left atrium is borderline dilated. The right atrium size is normal. AORTIC VALVE The aortic valve is normal in structure. No aortic regurgitation is present. MITRAL VALVE The mitral valve is normal in structure. Mitral regurgitation is trace. TRICUSPID VALVE The tricuspid valve is normal in structure. There is trace tricuspid regurgitation. PULMONIC VALVE The pulmonary valve is normal in structure. GREAT VESSELS The aortic root is normal in size. The IVC is normal in size and collapses >50% with inspiration. PERICARDIAL EFFUSION There is no pericardial effusion. <Conclusion> There is borderline concentric left ventricular hypertrophy. The left ventricular systolic function is normal. There is normal LV segmental wall motion. Transmitral Doppler flow pattern is normal for age. The right ventricular systolic function is normal. The left atrium is borderline dilated. No significant valvular abnormality. There is no pericardial effusion.
[2016-12-24] MEDS: cefTRIAXone IV 1 gm in Dextros 50 ML IVPB SCH (21:59)
--- NOTE | 2016-12-24 22:10 | CP.PCM.PN ---
Subjective - Date & Time of Evaluation Date of Evaluation: 12/24/16 Time of Evaluation: 20:25 - Subjective Subjective: She is stable, she had a procedure in her right side foot for trimming her nails. She is receiving Vitamin D to replace her very Low Vitamin D. High Troponin level. Objective - Vital Signs/Intake and Output Vital Signs (last 24 hours): Temp Pulse Resp BP Pulse Ox 98.2 F 85 20 162/65 H 96 12/24/16 15:19 12/24/16 15:19 12/24/16 15:19 12/24/16 15:19 12/24/16 15:19 Intake and Output: 12/24/16 12/25/16 18:59 06:59 Intake Total 675 Output Total 800 Balance -125 - Medications Medications: Current Medications Albuterol Sulfate (Albuterol 0.042% Inhal Soha (1.25mg/3ml) Ud) 1.25 mg INH RQ4 PRN PRN Reason: Wheezing Last Admin: 12/24/16 20:03 Dose: 1.25 mg Albuterol/Ipratropium (Duoneb 3 Mg/0.5 Mg (3 Ml) Ud) 3 ml INH RQ6 [facility] Last Admin: 12/24/16 13:17 Dose: 3 ml Amlodipine Besylate (Norvasc) 5 mg PO DAILY [facility] Last Admin: 12/24/16 11:03 Dose: 5 mg Benztropine Mesylate (Cogentin) 1 mg PO DAILY [facility] Last Admin: 12/24/16 11:03 Dose: 1 mg Chlorpromazine (Thorazine) 25 mg PO DAILY [facility] Last Admin: 12/24/16 11:03 Dose: 25 mg Docusate Sodium (Colace) 100 mg PO BID [facility] Last Admin: 12/24/16 18:11 Dose: 100 mg Enoxaparin Sodium (Lovenox) 70 mg SC DAILY [facility] Last Admin: 12/24/16 11:02 Dose: 70 mg Ergocalciferol (Drisdol 50,000 Intl Units Cap) 1 cap PO Q7D [facility] Last Admin: 12/23/16 12:54 Dose: 1 cap Ferric Sodium Gluconate Complex (Ferrlecit) 125 mg IVPB DAILY [facility] Stop: 12/31/16 16:00 Last Admin: 12/24/16 11:01 Dose: 125 mg Furosemide (Lasix) 40 mg IVP DAILY [facility] Last Admin: 12/24/16 11:04 Dose: 40 mg Guaifenesin/Dextromethorphan (Robitussin Dm) 10 ml PO Q4H PRN PRN Reason: Cough and congestion Last Admin: 12/24/16 13:55 Dose: 10 ml Azithromycin 500 mg/ Sodium (Chloride) 250 mls @ 250 mls/hr IVPB DAILY@2330 [facility] Last Admin: 12/24/16 01:55 Dose: 250 mls/hr Ceftriaxone Sodium (Rocephin Iv 1 Gm Duplex) 50 mls @ 100 mls/hr IVPB DAILY@ 2300 [facility] Last Admin: 12/24/16 21:59 Dose: 100 mls/hr Sodium Chloride (Sodium Chloride 0.45%) 1,000 mls @ 40 mls/hr IV .Q24H [facility] Last Admin: 12/24/16 11:17 Dose: 40 mls/hr Insulin Human Regular (Novolin R) 0 unit SC ACHS [facility] PRN Reason: Protocol Last Admin: 12/24/16 21:18 Dose: Not Given Potassium Chloride (K-Dur 20 Meq Er Tab) 40 meq PO DAILY [facility] Last Admin: 12/24/16 11:16 Dose: 40 meq Sitagliptin Phosphate (Januvia) 50 mg PO DAILY [facility] Last Admin: 12/24/16 11:03 Dose: 50 mg - Labs Labs: 12/24/16 06:08 12/24/16 06:08 Assessment and Plan (1) Anemia Status: Acute (2) Generalized weakness Status: Acute (3) Pneumonia Status: Acute (4) Thrombocytopenia Status: Acute (5) Onychomycosis Status: Acute (6) Schizophrenia Status: Acute (7) Diabetes mellitus Status: Chronic
[2016-12-25] MEDS: Albuterol-Ipratrop 3 mg / 0.5 (3 ml) UD INH SCH ×4 (01:45→19:39)
[2016-12-25 06:31] LABS: EOS # 0.1 K/uL (0.0-0.7); LYMPH # 0.5 K/uL (1.0-4.3); MONO # 0.6 K/uL (0.0-0.8)
[2016-12-25 06:41] LABS: POTASSIUM 4.3 mmol/L (3.6-5.2)
[2016-12-25 06:43] LABS: BILIRUBIN,TOTAL 0.1 mg/dL (0.2-1.3); TOTAL PROTEIN 6.2 g/dL (6.3-8.3)
[2016-12-25 06:44] LABS: CALCIUM 7.6 mg/dl (8.6-10.4)
[2016-12-25 06:52] LABS: EOS % 0.9 % (0.0-4.0)
[2016-12-25 07:00] LABS: BASO % 0.4 % (0.0-2.0); HEMATOCRIT 27.8 % (34.0-47.0); LYMPH % 7.1 % (20.0-40.0); MEAN CELL VOLUME 83.7 fL (81.0-99.0); MEAN CORPUSCULAR HEMOGLOBIN 26.7 pg (27.0-31.0); MEAN CORPUSCULAR HGB CONC 31.9 g/dL (33.0-37.0); MEAN PLATELET VOLUME 10.5 fL (7.2-11.7); MONO % 7.7 % (0.0-10.0); PLATELET COUNT 102 K/uL (130-400); RED CELL DISTRIBUTION WIDTH 15.4 % (11.5-14.5); WHITE BLOOD COUNT 7.7 K/uL (4.8-10.8)
[2016-12-25] MEDS ORDERED: Sodium Chloride 0.45% 1,000 ML IV SCH (07:38)
[2016-12-25] MEDS: (Novolin R) Insulin Human Regular 100 units/ml vial SC SCH ×4 (08:00→21:47)
[2016-12-25 08:53] LABS: NEUTROPHIL 86 % (50-75); REACTIVE LYMPHOCYTES 1 % (0-0); TOTAL CELLS COUNTED 100
[2016-12-25 08:54] LABS: GIANT PLATELETS PRESENT; LARGE PLATELETS PRESENT
[2016-12-25] MEDS: Potassium Chloride 20 mEq ER Tab PO SCH (09:17)
[2016-12-25] MEDS: Enoxaparin 80 mg Syringe SC SCH (09:44)
[2016-12-25] MEDS: guaiFENesin DM 200 mg-20 mg/10 ml UD PO PRN (09:45)
--- NOTE | 2016-12-25 10:07 | PN ---
DATE: 12/25/2016 I saw the patient resting comfortably in bed in room 650. She is alert. She is awake. She is watching TV. She slept well. She is in good spirits. She is waiting for breakfast. No chest pain or shortness of breath, no abdominal pain at this time. She wants to go to better. MEDICATIONS: She is currently on IV fluids. I will increase it from 40-60 mL per hour, albuterol, Cogentin, Colace, vitamin D, albuterol, DuoNeb, iron, Januvia - I increased from 50-100. Potassium, IV Lasix, Lovenox, Norvasc, insulin coverage, Robitussin, Thorazine, azithromycin IV and Rocephin IV. PHYSICAL EXAMINATION: VITAL SIGNS: This morning are 98.1 temp, 82 pulse, 142/66 blood pressure, 20 respiratory rate, 96% O2 sat on room air. HEENT: Head is atraumatic, normocephalic. Throat is moist. NECK: Supple. GENERAL: She is alert and oriented. HEART: Regular rate. LUNGS: Have decreased breath sounds, but clear to auscultation. ABDOMEN: Soft, positive bowel sounds, nontender, a little bit obese. EXTREMITIES: No edema. She is weak. Physical therapy recommended subacute rehab. LABORATORY DATA: She has a 7.7 white count, 8.9 hemoglobin - she is on iron, 27.8 and 102 platelets. Sodium 140, potassium 4.3. BUN is 40, creatinine 2.2. I will increase the IV fluids. Sugar is a little bit better at 239 and 216. I am going to increase the Januvia to 100. Calcium is 7.6. Troponins have dropped to 0.17. Total protein 6.2. She has multiple reasons to be in the hospital. She had pneumonia, thrombocytopenia, weakness, anemia, schizophrenia, diabetes, hypertension, and she is also debilitated. I am hoping to get her to physical therapy, subacute rehab tomorrow - [facility]. I will ask case management to help us, and we can continue treatment at subacute rehab, and I am hoping for discharge tomorrow - Monday. Malik Gusman DO cc: [id number] TT: 12/25/2016 10:06:44 Confirmation # [id number] Dictation # [id number] MTDD
--- NOTE | 2016-12-25 11:17 | CP.PCM.PN ---
Subjective - Date & Time of Evaluation Date of Evaluation: 12/25/16 Time of Evaluation: 11:15 - Subjective Subjective: patient feels better. not on Bipap. no chest pain Objective - Vital Signs/Intake and Output Vital Signs (last 24 hours): Temp Pulse Resp BP Pulse Ox 98 F 103 H 20 188/84 H 95 12/25/16 07:00 12/25/16 07:00 12/25/16 07:00 12/25/16 09:16 12/25/16 07:00 Intake and Output: 12/25/16 12/25/16 06:59 18:59 Intake Total 840 Output Total 1000 Balance -160 - Medications Medications: Current Medications Albuterol Sulfate (Albuterol 0.042% Inhal Shoa (1.25mg/3ml) Ud) 1.25 mg INH RQ4 PRN PRN Reason: Wheezing Last Admin: 12/24/16 20:03 Dose: 1.25 mg Albuterol/Ipratropium (Duoneb 3 Mg/0.5 Mg (3 Ml) Ud) 3 ml INH RQ6 VIKA Last Admin: 12/25/16 08:19 Dose: 3 ml Amlodipine Besylate (Norvasc) 5 mg PO DAILY [facility] Last Admin: 12/25/16 09:17 Dose: 5 mg Benztropine Mesylate (Cogentin) 1 mg PO DAILY [facility] Last Admin: 12/25/16 09:44 Dose: 1 mg Chlorpromazine (Thorazine) 25 mg PO DAILY [facility] Last Admin: 12/24/16 11:03 Dose: 25 mg Docusate Sodium (Colace) 100 mg PO BID [facility] Last Admin: 12/25/16 09:17 Dose: 100 mg Enoxaparin Sodium (Lovenox) 70 mg SC DAILY [facility] Last Admin: 12/25/16 09:44 Dose: 70 mg Ergocalciferol (Drisdol 50,000 Intl Units Cap) 1 cap PO Q7D [facility] Last Admin: 12/23/16 12:54 Dose: 1 cap Ferric Sodium Gluconate Complex (Ferrlecit) 125 mg IVPB DAILY [facility] Stop: 12/31/16 16:00 Last Admin: 12/24/16 11:01 Dose: 125 mg Furosemide (Lasix) 40 mg IVP DAILY [facility] Last Admin: 12/25/16 09:16 Dose: 40 mg Guaifenesin/Dextromethorphan (Robitussin Dm) 10 ml PO Q4H PRN PRN Reason: Cough and congestion Last Admin: 12/25/16 09:45 Dose: 10 ml Azithromycin 500 mg/ Sodium (Chloride) 250 mls @ 250 mls/hr IVPB DAILY@2330 [facility] Last Admin: 12/24/16 22:38 Dose: 250 mls/hr Ceftriaxone Sodium (Rocephin Iv 1 Gm Duplex) 50 mls @ 100 mls/hr IVPB DAILY@ 2300 [facility] Last Admin: 12/24/16 21:59 Dose: 100 mls/hr Sodium Chloride (Sodium Chloride 0.45%) 1,000 mls @ 60 mls/hr IV .[id number] [facility] Insulin Detemir (Levemir) 10 unit SC HS [facility] Insulin Human Regular (Novolin R) 0 unit SC ACHS [facility] PRN Reason: Protocol Last Admin: 12/25/16 08:00 Dose: 3 unit Potassium Chloride (K-Dur 20 Meq Er Tab) 40 meq PO DAILY [facility] Last Admin: 12/25/16 09:17 Dose: 40 meq Sitagliptin Phosphate (Januvia) 25 mg PO DAILY [facility] - Labs Labs: 12/25/16 06:06 12/25/16 06:06 - Constitutional Appears: Non-toxic - Head Exam Head Exam: NORMAL INSPECTION - Eye Exam Eye Exam: Normal appearance - ENT Exam ENT Exam: Mucous Membranes Moist - Neck Exam Neck Exam: Full ROM - Respiratory Exam Respiratory Exam: Decreased Breath Sounds - Cardiovascular Exam Cardiovascular Exam: REGULAR RHYTHM - GI/Abdominal Exam GI & Abdominal Exam: Normal Bowel Sounds - Rectal Exam Rectal Exam: Deferred - Extremities Exam Extremities Exam: absent: Pedal Edema - Back Exam Back Exam: NORMAL INSPECTION - Neurological Exam Neurological Exam: Alert - Skin Skin Exam: Normal Color Assessment and Plan (1) Dyspnea Assessment & Plan: improved. continue current therapy Status: Acute (2) Diabetes mellitus Assessment & Plan: benefit from RICHARD/ARB however caution with renal insufficiency Status: Chronic (3) HTN (hypertension) Assessment & Plan: will add Imdur/hydralazine for afterload reduction. caution with betablocker due to bronchospasm Status: Acute
[2016-12-25] MEDS: Ferric Sodium Gluconat Complex 62.5 mg/5 ml Vial IVPB SCH (12:44)
[2016-12-25 17:30] VITALS: RESP 20
[2016-12-25] MEDS ORDERED: Insulin Detemir 100 units/ml Vial (Levemir) SC SCH (22:00)
--- NOTE | 2016-12-25 22:17 | CP.PCM.PN ---
Subjective - Date & Time of Evaluation Date of Evaluation: 12/25/16 Time of Evaluation: 21:25 - Subjective Subjective: She is more stable, her Schizophrenia looks more controlled. Her Schizophrenia needs to be followed by her Psychiatrist. Objective - Vital Signs/Intake and Output Vital Signs (last 24 hours): Temp Pulse Resp BP Pulse Ox 98.7 F 98 H 20 161/69 H 99 12/25/16 17:29 12/25/16 17:29 12/25/16 17:29 12/25/16 17:29 12/25/16 17:29 Intake and Output: 12/25/16 12/26/16 18:59 06:59 Intake Total 830 Output Total 1600 Balance -770 - Medications Medications: Current Medications Albuterol Sulfate (Albuterol 0.042% Inhal Soha (1.25mg/3ml) Ud) 1.25 mg INH RQ4 PRN PRN Reason: Wheezing Last Admin: 12/24/16 20:03 Dose: 1.25 mg Albuterol/Ipratropium (Duoneb 3 Mg/0.5 Mg (3 Ml) Ud) 3 ml INH RQ6 VIKA Last Admin: 12/25/16 19:39 Dose: 3 ml Amlodipine Besylate (Norvasc) 5 mg PO DAILY [facility] Last Admin: 12/25/16 09:17 Dose: 5 mg Benztropine Mesylate (Cogentin) 1 mg PO DAILY [facility] Last Admin: 12/25/16 09:44 Dose: 1 mg Chlorpromazine (Thorazine) 25 mg PO DAILY [facility] Last Admin: 12/25/16 12:56 Dose: 25 mg Docusate Sodium (Colace) 100 mg PO BID [facility]KA Last Admin: 12/25/16 18:17 Dose: 100 mg Enoxaparin Sodium (Lovenox) 70 mg SC DAILY [facility] Last Admin: 12/25/16 09:44 Dose: 70 mg Ergocalciferol (Drisdol 50,000 Intl Units Cap) 1 cap PO Q7D [facility] Last Admin: 12/23/16 12:54 Dose: 1 cap Ferric Sodium Gluconate Complex (Ferrlecit) 125 mg IVPB DAILY [facility] Stop: 12/31/16 16:00 Last Admin: 12/25/16 12:44 Dose: 125 mg Furosemide (Lasix) 40 mg IVP DAILY [facility] Last Admin: 12/25/16 09:16 Dose: 40 mg Guaifenesin/Dextromethorphan (Robitussin Dm) 10 ml PO Q4H PRN PRN Reason: Cough and congestion Last Admin: 12/25/16 09:45 Dose: 10 ml Hydralazine HCl (Apresoline) 25 mg PO TID [facility] Last Admin: 12/25/16 18:18 Dose: 25 mg Azithromycin 500 mg/ Sodium (Chloride) 250 mls @ 250 mls/hr IVPB DAILY@2330 [facility] Last Admin: 12/24/16 22:38 Dose: 250 mls/hr Ceftriaxone Sodium (Rocephin Iv 1 Gm Duplex) 50 mls @ 100 mls/hr IVPB DAILY@ 2300 [facility] Last Admin: 12/24/16 21:59 Dose: 100 mls/hr Sodium Chloride (Sodium Chloride 0.45%) 1,000 mls @ 60 mls/hr IV .[id number] [facility] Last Admin: 12/25/16 12:56 Dose: 60 mls/hr Insulin Detemir (Levemir) 10 unit SC HS [facility] Last Admin: 12/25/16 21:46 Dose: 10 unit Insulin Human Regular (Novolin R) 0 unit SC ACHS [facility] PRN Reason: Protocol Last Admin: 12/25/16 21:47 Dose: Not Given Isosorbide Mononitrate (Imdur) 60 mg PO DAILY [facility] Last Admin: 12/25/16 12:09 Dose: 60 mg Potassium Chloride (K-Dur 20 Meq Er Tab) 40 meq PO DAILY [facility] Last Admin: 12/25/16 09:17 Dose: 40 meq Sitagliptin Phosphate (Januvia) 25 mg PO DAILY [facility] Last Admin: 12/25/16 12:10 Dose: 25 mg - Labs Labs: 12/25/16 06:06 12/25/16 06:06 Assessment and Plan (1) Anemia Status: Acute (2) Generalized weakness Status: Acute (3) Pneumonia Status: Acute (4) Thrombocytopenia Status: Acute (5) Onychomycosis Status: Acute (6) Schizophrenia Status: Acute (7) Diabetes mellitus Status: Chronic
[2016-12-25] MEDS: cefTRIAXone IV 1 gm in Dextros 50 ML IVPB SCH (22:30)
[2016-12-25] MEDS: Azithromycin 500 MG in Sodium Chloride 0.9% 250 ML IVPB SCH (23:33)
[2016-12-26] MEDS: Albuterol-Ipratrop 3 mg / 0.5 (3 ml) UD INH SCH ×3 (01:21→13:43)
[2016-12-26 06:15] LABS: BASO % 0.3 % (0.0-2.0); EOS # 0.2 K/uL (0.0-0.7); EOS % 2.3 % (0.0-4.0); HEMATOCRIT 27.5 % (34.0-47.0); LYMPH # 0.6 K/uL (1.0-4.3); MEAN CELL VOLUME 83.9 fL (81.0-99.0); MEAN CORPUSCULAR HEMOGLOBIN 26.8 pg (27.0-31.0); MEAN CORPUSCULAR HGB CONC 31.9 g/dL (33.0-37.0); MEAN PLATELET VOLUME 10.9 fL (7.2-11.7); MONO # 0.7 K/uL (0.0-0.8); MONO % 8.6 % (0.0-10.0); NRBC % 0.1 % (0.0-2.0); PLATELET COUNT 106 K/uL (130-400); RED CELL DISTRIBUTION WIDTH 15.6 % (11.5-14.5); WHITE BLOOD COUNT 8.3 K/uL (4.8-10.8)
[2016-12-26 06:31] LABS: POTASSIUM 4.1 mmol/L (3.6-5.2)
[2016-12-26 06:33] LABS: BILIRUBIN,TOTAL 0.2 mg/dL (0.2-1.3); TOTAL PROTEIN 6.3 g/dL (6.3-8.3)
[2016-12-26 06:34] LABS: CALCIUM 7.6 mg/dl (8.6-10.4)
--- NOTE | 2016-12-26 07:56 | NM ---
COMPARISON: 12/24/2016. TECHNIQUE: 6.0 mCi technetium 99-m Xe-133 Gas. 5.3 mCI technetium 99-m MAA administered intravenously. FINDINGS: VENTILATION COMPONENT: Heterogeneous ventilation PERFUSION COMPONENT: Defect in the right upper lobe consistent with findings on recent chest x-ray/pneumonia. IMPRESSION: Lowprobability ventilation perfusion scan for pulmonary embolism. Concordant results (preliminary interpretation) provided by [facility]. Procedure Completed: 15:26 Preliminary ([facility]) Report: Dictated and Authenticated: 16:51 Final Interpretation: 07:54. December 26, 2016.
--- NOTE | 2016-12-26 08:05 | DS ---
I saw her resting comfortably in bed. She slept well. She is hungry. She is talking. She is in go od spirits. I discussed going to physical therapy before she went home. Physical therapy recommende d subacute rehabilitation. I think she needs it too, maybe a couple of weeks there, more antibiotics in the IV before she goes home. PHYSICAL EXAMINATION: VITAL SIGNS: She has a 97.7 temp, 96 pulse, 152/76 blood pressure, 20 respiratory rate, 98% O2 sat o n nasal cannula. HEENT: Head is atraumatic, normocephalic. Her throat is moist. NECK: Supple. HEART: Regular rate. LUNGS: Decreased breath sounds, but clear to auscultation. ABDOMEN: Soft, obese, nontender, positive bowel sounds, no guarding, no rebound. EXTREMITIES: No edema. She is currently on albuterol, hydralazine, azithromycin IV, Cogentin, Colace, Drisdol, DuoNeb, iron, Imdur, Januvia, potassium, Lasix, Levemir, Lovenox, Norvasc, insulin coverage, Robitussin, Rocephin IV, IV fluids, and Thorazine. She had blood tests yesterday, a 7.7 white count, 8.9 hemoglobin, 27.8 hematocrit with 102 platelets. We will see what today's CBC is. She has a 143 sodium, potassium 4.1, BUN is 41, creatinine 2, a l ittle better, GFR is 25, sugar is down to 157, better, calcium 7.6, total bili is 0.2, AST is 40, ALT is 16, alk phos 64, total protein 6.3. She is being seen by cardio. I am hoping that we can discharge her to subacute rehab today for physi monty therapy, continue IV antibiotics, IV fluids, check her labs and get her physically stronger. I w ill discuss that with social workers today. The patient was here for numerous reasons, pneumonia, th rombocytopenia, elevated troponins, renal insufficiency, anemia, schizophrenia, diabetes, hypertensio n, weakness. Malik Gusman DO cc: [id number] TT: 12/26/2016 08:04:43 [facility] # [id number] en
[2016-12-26 08:21] LABS: NEUTROPHIL 81 % (50-75); TOTAL CELLS COUNTED 100
[2016-12-26 08:22] LABS: LARGE PLATELETS PRESENT
[2016-12-26] MEDS: (Novolin R) Insulin Human Regular 100 units/ml vial SC SCH ×2 (08:33→12:36)
--- NOTE | 2016-12-26 08:52 | VASCLAB ---
PROCEDURE: Left Lower Extremity Venous Duplex Exam. HISTORY: suspected DVT/PE left leg edema, pain PRIORS: None. TECHNIQUE: Left common femoral, femoral, popliteal and posterior tibial, peroneal and great saphenous veins were evaluated. Flow was assessed with color Doppler, compressibility, assessment of phasic flow and augmentation response. Report prepared by Kurtis Smith, RVT FINDINGS: LEFT: 1. Common Femoral Vein: 1.1. Compressibility - Fully compressible: Thrombus - None : Flow - Phasic: Augmentation -Normal: Reflux - . 2. Femoral Vein: 2.1. Compressibility - Fully compressible: Thrombus - None: Flow - Phasic: Augmentation -Normal: Reflux - . 3. Popliteal Vein: 3.1. Compressibility - Fully compressible: Thrombus - None: Flow - Phasic: Augmentation -Normal: Reflux - . 4. Posterior Tibial Vein: 4.1. Compressibility - : Thrombus - : Flow - : Augmentation -: Reflux - . 5. Peroneal Vein: 5.1. Compressibility - : Thrombus - : Flow - : Augmentation -: Reflux - . 6. Great Saphenous Vein: 6.1. Compressibility - Fully compressible: Thrombus - None: Flow - : Augmentation - : Reflux - . OTHER FINDINGS: IMPRESSION: The posterior tibial and peroneal were poorly visualized due to severe edema. There was No evidence of deep or superficial vein thrombosis for those clearly visualized veins of the left lower extremity. Normal venous flow noted in the right common femoral vein.
--- NOTE | 2016-12-26 08:56 | VASCLAB ---
PROCEDURE: HISTORY: Cerebrovascular atherosclerosis, Carotid stenosis(left) COMPARISON: None available. TECHNIQUE: Grayscale and duplex Doppler evaluation of the cervical carotid and vertebral arteries were performed. The common carotid, carotid bifurcations and cervical Internal Carotid Artery (ICA) and proximal External Carotid Artery (ECA) were evaluated. The vertebral arteries were evaluated for gross patency and flow direction. Report prepared by Kurtis Smith, T FINDINGS: RIGHT CAROTID ARTERIES: 1. Common Carotid Artery: No significant focal plaque formation of the right common carotid artery. Maximum Peak Systolic velocity: 74.1 cm/sec: End-diastolic velocity 12.2 cm/sec. 2. Carotid Bifurcation: Moderate Calcific plaque formation. Maximum Peak Systolic velocity: 78.2 cm/sec: End-diastolic velocity 15.0 cm/sec. 3. Internal Carotid Artery: Plaque description: Mild Heterogeneous 3.1. Proximal Segment: Peak systolic velocity 93.0 cm/sec: End-diastolic velocity 25.2 cm/sec - % stenosis 30-49% 3.2. Middle Segment: Peak systolic velocity 86.1 cm/sec: End-diastolic velocity 21.3 cm/sec - % stenosis 3.3. Distal Segment: Peak systolic velocity 44.5 cm/sec: End-diastolic velocity 10.4 cm/sec - % stenosis 4. External Carotid Artery: No significant focal plaque formation. Peak systolic velocity 119.0 cm/sec 5. ICA/CCA Ratio: 1.3 LEFT CAROTID ARTERIES: 1. Common Carotid Artery: No significant focal plaque formation of the left common carotid artery. Maximum Peak Systolic velocity: 100.1 cm/sec: End-diastolic velocity 18.4 cm/sec. 2. Carotid Bifurcation: Mild to moderate calcific plaque formation. Maximum Peak Systolic velocity: 100.1 cm/sec: End-diastolic velocity 24.0 cm/sec. 3. Internal Carotid Artery: Plaque description: 3.1. Proximal Segment: Peak systolic velocity 192.1 cm/sec: End-diastolic velocity 65.3 cm/sec - % stenosis 3.2. Middle Segment: Peak systolic velocity 240.2 cm/sec: End-diastolic velocity 94.2 cm/sec - % stenosis 3.3. Distal Segment: Peak systolic velocity 104.4 cm/sec: End-diastolic velocity 44.1 cm/sec - % stenosis 4. External Carotid Artery: No significant focal plaque formation. Peak systolic velocity 110.1 cm/sec 5. ICA/CCA Ratio: 2.4 VERTEBRAL ARTERIES: 1. Right Vertebral Artery: The right vertebral artery flow direction is antegrade. 2. Left Vertebral Artery: The left vertebral artery flow direction is antegrade. OTHER FINDINGS: 1. Right Brachial Blood pressure: mmHg. 2. Left Brachial Blood pressure: mmHg. IMPRESSION: RIGHT: Duplex scan does suggest 30-49%(closer to highest end of the range given)Non-hemodynamically stenosis of the right internal carotid artery. LEFT: Duplex scan does suggest 50-69%(closer to highest end of the range given)Hemodynamically significant stenosis of the left internal carotid artery
[2016-12-26] MEDS: Potassium Chloride 20 mEq ER Tab PO SCH (09:58)
[2016-12-26] MEDS: Enoxaparin 80 mg Syringe SC SCH (09:59)
[2016-12-26] MEDS: guaiFENesin DM 200 mg-20 mg/10 ml UD PO PRN (10:00)
[2016-12-26] MEDS: Ferric Sodium Gluconat Complex 62.5 mg/5 ml Vial IVPB SCH (11:13)
[2016-12-26] MEDS ORDERED: Pneumococcal 23-Valent Vaccine IM ONE (12:27)
[2016-12-26 12:59] VITALS: BP 163/67; TEMP 98.7; O2SAT 99
--- NOTE | 2016-12-26 13:10 | CP.PCM.PN ---
Subjective - Date & Time of Evaluation Date of Evaluation: 12/26/16 Time of Evaluation: 13:08 - Subjective Subjective: Less SOB Renal US- c/w CKD Urine protein excretion rate confirms nephrotic syndrome Goog UO with IV lasix- CHF better Objective - Vital Signs/Intake and Output Vital Signs (last 24 hours): Temp Pulse Resp BP Pulse Ox 98.7 F 85 20 163/67 H 99 12/26/16 12:58 12/26/16 07:00 12/26/16 07:00 12/26/16 12:58 12/26/16 12:58 Intake and Output: 12/26/16 12/26/16 06:59 18:59 Intake Total 780 Output Total 1050 550 Balance -270 -550 - Medications Medications: Current Medications Albuterol Sulfate (Albuterol 0.042% Inhal Soha (1.25mg/3ml) Ud) 1.25 mg INH RQ4 PRN PRN Reason: Wheezing Last Admin: 12/24/16 20:03 Dose: 1.25 mg Albuterol/Ipratropium (Duoneb 3 Mg/0.5 Mg (3 Ml) Ud) 3 ml INH RQ6 VIKA Last Admin: 12/26/16 09:23 Dose: 3 ml Amlodipine Besylate (Norvasc) 5 mg PO DAILY [facility] Last Admin: 12/26/16 10:01 Dose: 5 mg Benztropine Mesylate (Cogentin) 1 mg PO DAILY [facility] Last Admin: 12/26/16 11:14 Dose: 1 mg Chlorpromazine (Thorazine) 25 mg PO DAILY [facility] Last Admin: 12/26/16 11:14 Dose: 25 mg Docusate Sodium (Colace) 100 mg PO BID [facility] Last Admin: 12/26/16 10:01 Dose: 100 mg Enoxaparin Sodium (Lovenox) 70 mg SC DAILY [facility] Last Admin: 12/26/16 09:59 Dose: 70 mg Ergocalciferol (Drisdol 50,000 Intl Units Cap) 1 cap PO Q7D [facility] Last Admin: 12/23/16 12:54 Dose: 1 cap Ferric Sodium Gluconate Complex (Ferrlecit) 125 mg IVPB DAILY [facility] Stop: 12/31/16 16:00 Last Admin: 12/26/16 11:13 Dose: 125 mg Furosemide (Lasix) 40 mg IVP DAILY [facility] Last Admin: 12/26/16 09:59 Dose: 40 mg Guaifenesin/Dextromethorphan (Robitussin Dm) 10 ml PO Q4H PRN PRN Reason: Cough and congestion Last Admin: 12/26/16 10:00 Dose: 10 ml Hydralazine HCl (Apresoline) 25 mg PO TID [facility] Last Admin: 12/26/16 10:01 Dose: 25 mg Azithromycin 500 mg/ Sodium (Chloride) 250 mls @ 250 mls/hr IVPB DAILY@2330 [facility] Last Admin: 12/25/16 23:33 Dose: 250 mls/hr Ceftriaxone Sodium (Rocephin Iv 1 Gm Duplex) 50 mls @ 100 mls/hr IVPB DAILY@ 2300 [facility] Last Admin: 12/25/16 22:30 Dose: 100 mls/hr Sodium Chloride (Sodium Chloride 0.45%) 1,000 mls @ 60 mls/hr IV .[id number] [facility] Last Admin: 12/25/16 12:56 Dose: 60 mls/hr Insulin Detemir (Levemir) 10 unit SC HS [facility] Last Admin: 12/25/16 21:46 Dose: 10 unit Insulin Human Regular (Novolin R) 0 unit SC ACHS [facility] PRN Reason: Protocol Last Admin: 12/26/16 12:36 Dose: 4 unit Isosorbide Mononitrate (Imdur) 60 mg PO DAILY [facility] Last Admin: 12/26/16 10:00 Dose: 60 mg Potassium Chloride (K-Dur 20 Meq Er Tab) 40 meq PO DAILY [facility] Last Admin: 12/26/16 09:58 Dose: 40 meq Sitagliptin Phosphate (Januvia) 25 mg PO DAILY [facility] Last Admin: 12/26/16 10:00 Dose: 25 mg - Labs Labs: 12/26/16 06:07 12/26/16 06:07 - Constitutional Appears: No Acute Distress, Chronically Ill - Head Exam Head Exam: ATRAUMATIC, NORMAL INSPECTION - Eye Exam Eye Exam: EOMI, Normal appearance - Neck Exam Neck Exam: Normal Inspection. absent: Tenderness - Respiratory Exam Respiratory Exam: Clear to Ausculation Bilateral, NORMAL BREATHING PATTERN - Cardiovascular Exam Cardiovascular Exam: REGULAR RHYTHM, +S1 - GI/Abdominal Exam GI & Abdominal Exam: Soft. absent: Tenderness - Extremities Exam Extremities Exam: Normal Inspection. absent: Tenderness - Neurological Exam Neurological Exam: Alert, CN II-XII Intact - Skin Skin Exam: Dry, Warm Assessment and Plan (1) HTN (hypertension) Status: Acute (2) Type 2 diabetes mellitus with diabetic nephropathy Status: Acute (3) CKD stage 3 due to type 2 diabetes mellitus Status: Acute (4) CHF (congestive heart failure) Status: Acute - Assessment and Plan (Free Text) Plan: change to po lasix Add ARB d/c iv fluids
[2016-12-26 17:13] VITALS: PULSE 91
--- NOTE | 2016-12-26 18:06 | CARD ---
APPROVED REPORT EKG Measurement Heart [id number] [place] [id number] <Conclusion> Normal sinus rhythm Normal ECG
--- NOTE | 2016-12-26 18:09 | CARD ---
APPROVED REPORT EKG Measurement Heart [id number] [place] 156P53 [id number] <Conclusion> Normal sinus rhythm Normal ECG
--- NOTE | 2016-12-26 20:15 | CP.PCM.PN ---
Subjective - Date & Time of Evaluation Date of Evaluation: 12/26/16 Time of Evaluation: 13:30 - Subjective Subjective: Patient is discharged from the the hospital and is transferred to a different facility. Dx Schizophrenia, recovered AMS, Possible Nephrotic Syndrome due to the volume of Protein excreted in Urine. Objective - Vital Signs/Intake and Output Vital Signs (last 24 hours): Temp Pulse Resp BP Pulse Ox 98.7 F 91 H 20 163/67 H 99 12/26/16 12:58 12/26/16 07:55 12/26/16 07:00 12/26/16 12:58 12/26/16 12:58 Intake and Output: 12/26/16 12/27/16 18:59 06:59 Output Total 550 Balance -550 - Labs Labs: 12/26/16 06:07 12/26/16 06:07 Assessment and Plan (1) Anemia Status: Chronic (2) Generalized weakness Status: Chronic (3) Pneumonia Status: Resolved (4) Thrombocytopenia Status: Resolved (5) Onychomycosis Status: Chronic (6) Schizophrenia Status: Acute (7) Diabetes mellitus Status: Chronic
--- NOTE | 2016-12-27 10:29 | EEG ---
DATE: 12/23/2016 The record was obtained for history of rule out seizures. The patient has a history of recurrent fal ling. The record was symmetrically equal on both sides with velocity of 8 cycles per second. Waves are ruth rly formed, fairly organized with a posterior distribution, moderate in amplitude, reactive to eye op ening by attenuation. There were abnormal discharges that were seen in the left temporal, parietal, occipital area consisting of spikes that were seen, and they lasted for several seconds, and they wer e followed by slow waves. The record showed eye movement artifact, electrode artifact, muscle moveme nt artifact. There are periods of drowsiness during which attenuation and slowing of the record were seen, and theta waves were seen. In sum, this is an abnormal record, significant for left focal spikes in the left temporal, parietal, and occipital area. This might be consistent with focal seizures, and this might explain her recurr ent falling. Sergey Reynoso MD cc: [id number] TT: 12/27/2016 09:28:00 Confirmation # [id number] Dictation # [id number]
--- NOTE | 2017-01-02 23:30 | CARD ---
APPROVED REPORT EKG Measurement Heart [id number] [place] 154P68 [id number] <Conclusion> Normal sinus rhythm Cannot rule out Anterior infarct, age undetermined Abnormal ECG
--- NOTE | 2017-01-04 11:10 | CARD ---
APPROVED REPORT EKG Measurement Heart [id number] [place] 148P68 [id number] <Conclusion> Normal sinus rhythm Normal ECG
--- NOTE | 2017-02-21 12:35 | CARD ---
APPROVED REPORT EKG Measurement Heart [id number] <Conclusion> Normal sinus rhythm Cannot rule out Anterior infarct, age undetermined Abnormal ECG
== END 2016-12-26 14:10 | DRG 811 ==
LOC: C.ER 20:47 → C.5T 12-22 00:42 → C.3T 12-23 20:11 → C.6T 12-24 03:40
PROVIDERS: ADMIT Internal Medicine; ATTEND Family Medicine
PROC: 0HBRXZZ Excision of Toe Nail, External Approach (ICD-10-PCS; principal; 2016-12-22)
PROC: 0HBRXZZ Excision of Toe Nail, External Approach (ICD-10-PCS; 2016-12-22)
PROC: 0HBRXZZ Excision of Toe Nail, External Approach (ICD-10-PCS; 2016-12-22)
PROC: 0HBRXZZ Excision of Toe Nail, External Approach (ICD-10-PCS; 2016-12-22)
PROC: 0HBRXZZ Excision of Toe Nail, External Approach (ICD-10-PCS; 2016-12-22)
PROC: 0HBRXZZ Excision of Toe Nail, External Approach (ICD-10-PCS; 2016-12-22)
PROC: 0HBRXZZ Excision of Toe Nail, External Approach (ICD-10-PCS; 2016-12-22)
PROC: 0HBRXZZ Excision of Toe Nail, External Approach (ICD-10-PCS; 2016-12-22)
PROC: 0HBRXZZ Excision of Toe Nail, External Approach (ICD-10-PCS; 2016-12-22)
PROC: 0HBRXZZ Excision of Toe Nail, External Approach (ICD-10-PCS; 2016-12-22)
DX: D50.9 Iron deficiency anemia, unspecified (principal); J18.9 Pneumonia, unspecified organism; I13.0 Hypertensive heart and chronic kidney disease with heart failure and stage 1 through stage 4 chronic kidney disease, or unspecified chronic kidney disease; E11.21 Type 2 diabetes mellitus with diabetic nephropathy; E11.42 Type 2 diabetes mellitus with diabetic polyneuropathy; D69.6 Thrombocytopenia, unspecified; I50.9 Heart failure, unspecified; E86.0 Dehydration; N18.3 Chronic kidney disease, stage 3 (moderate); R53.1 Weakness; E55.9 Vitamin D deficiency, unspecified; B35.1 Tinea unguium; E83.42 Hypomagnesemia; E87.6 Hypokalemia; R79.89 Other specified abnormal findings of blood chemistry; R06.00 Dyspnea, unspecified; S20.229A Contusion of unspecified back wall of thorax, initial encounter; F20.9 Schizophrenia, unspecified; S80.812A Abrasion, left lower leg, initial encounter; W18.2XXA Fall in (into) shower or empty bathtub, initial encounter; R26.9 Unspecified abnormalities of gait and mobility

== ENCOUNTER 2017-01-10 00:28 | Emergency (ER) | payer MEDICARE, MEDICAID ==
--- NOTE | 2017-01-10 01:25 | C.PDOC ---
History Of Present Illness 61 y/o female presents to ED with complaint of generalized rash since Monday (3 days) after completing Zithromax and Rocephin on January 04. Patient otherwise denies fever, chills, throat swelling, difficulty breathing, cough, or other associated symptoms. Speaking in complete sentences on arrival. Time Seen by Provider: 01/10/17 01:24 Chief Complaint (Nursing): Abnormal Skin Integrity History Per: Patient History/Exam Limitations: no limitations Onset/Duration Of Symptoms: Days Current Symptoms Are (Timing): Still Present Location Of Injury: Right: Arm, Leg, Left: Arm, Leg, Anterior: Chest, Posterior : Back Quality Of Symptoms: Itching. denies: Draining Pain Scale Rating Of: 0 Recent travel outside of the [place]: No Past Medical History Reviewed: Historical Data, Nursing Documentation, Vital Signs Vital Signs: Last Vital Signs Temp 98.1 F 01/10/17 00:35 Pulse 75 01/10/17 03:37 Resp 16 01/10/17 03:37 BP 161/64 H 01/10/17 03:37 Pulse Ox 98 01/10/17 03:37 - Medical History PMH: Anemia, Diabetes, HTN, Pneumonia, Schizophrenia - [facility] Procedures EXCISION OF TOE NAIL, EXTERNAL APPROACH (12/22/16) Family History: States: Unknown Family Hx - Social History Hx Alcohol Use: No Hx Substance Use: No - Immunization History Hx Tetanus Toxoid Vaccination: No Hx Influenza Vaccination: No Hx Pneumococcal Vaccination: No Review Of Systems Constitutional: Negative for: Fever, Chills ENT: Negative for: Mouth Swelling, Throat Swelling Cardiovascular: Negative for: Chest Pain, Palpitations Respiratory: Negative for: Shortness of Breath Gastrointestinal: Negative for: Nausea, Vomiting Skin: Positive for: Rash Neurological: Negative for: Dizziness Physical Exam - Physical Exam Appears: Non-toxic, No Acute Distress, Other (speaking complete sentences, tolerating her own secretions) Skin: Warm, Dry, Rash (diffuse urticarial rash) Head: Atraumatic, Normacephalic Oral Mucosa: Moist Tongue: Normal Appearing, No Swelling Throat: Normal, No Erythema, No Exudate, No Drooling Neck: Supple Chest: Symmetrical Cardiovascular: Rhythm Regular Respiratory: Rhonchi (scattered at bases), No Stridor, No Wheezing Gastrointestinal/Abdominal: Soft, No Tenderness Back: Normal Inspection Extremity: Normal ROM, Capillary Refill (< 2 sec. ) Neurological/Psych: Oriented x3, Normal Speech, Normal Cognition ED Course And Treatment - Laboratory Results Result Diagrams: 01/10/17 02:06 01/10/17 02:06 O2 Sat by Pulse Oximetry: 97 (RA) Pulse Ox Interpretation: Normal Progress Note: Benadryl, prednisone, pepcid, IVFs. Labs ordered. Reevaluation Time: 06:08 Reassessment Condition: Improved Medical Decision Making Medical Decision Making: Upon provider reevaluation patient is feeling better, is medically stable, and requires no further treatment in the ED at this time. Patient will be discharged home with Rx for prednisone . Counseling was provided and all questions were answered regarding diagnosis and need for follow up with Dr. Gusman. There is agreement to discharge plan. Return if symptoms persist or worsen. Disposition Discussed With Dr.: Malik Gusman Comment: will see her at [facility] Counseled Patient/Family Regarding: Studies Performed, Diagnosis, Need For Followup, Rx Given - Disposition Referrals: Malik Gusman, [Staff Provider] - Disposition: HOME/ ROUTINE Disposition Time: 01:25 Condition: FAIR Additional Instructions: Please also use benadryl, pepcid and claritin Prescriptions: Prednisone [Deltasone] 20 mg PO DAILY #5 tablet Instructions: General Allergic Reaction (ED), Urticaria (ED) - Clinical Impression Clinical Impression: Skin irritation, Allergic reaction caused by a drug - Scribe Statement The provider has reviewed the documentation as recorded by the Obi Umanzor Provider Scribe Attestation: All medical record entries made by the Scribe were at my direction and personally dictated by me. I have reviewed the chart and agree that the record accurately reflects my personal performance of the history, physical exam, medical decision making, and the department course for this patient. I have also personally directed, reviewed, and agree with the discharge instructions and disposition.
[2017-01-10] MEDS ORDERED: DiphenhydrAMINE 50 mg/ml Inj IVP STA (01:26)
[2017-01-10] MEDS ORDERED: DiphenhydrAMINE 50 mg/ml Inj ONE (02:03)
[2017-01-10 02:09] LABS: BASO # 0.1 K/uL (0.0-0.2); EOS # 0.2 K/uL (0.0-0.7); EOS % 2.4 % (0.0-4.0); LYMPH % 9.5 % (20.0-40.0); MEAN CORPUSCULAR HEMOGLOBIN 27.5 pg (27.0-31.0); MEAN CORPUSCULAR HGB CONC 31.9 g/dL (33.0-37.0); MEAN PLATELET VOLUME 11.2 fL (7.2-11.7); MONO # 0.8 K/uL (0.0-0.8); PLATELET COUNT 130 K/uL (130-400); RED CELL DISTRIBUTION WIDTH 16.4 % (11.5-14.5); WHITE BLOOD COUNT 10.1 K/uL (4.8-10.8)
[2017-01-10 02:20] LABS: INR 1.1
[2017-01-10 02:21] LABS: POTASSIUM 4.4 mmol/L (3.6-5.2)
[2017-01-10 02:24] LABS: CALCIUM 7.8 mg/dl (8.6-10.4)
[2017-01-10 02:26] LABS: MEAN CELL VOLUME 86.3 fL (81.0-99.0)
[2017-01-10 02:45] LABS: EOSINOPHIL 3 % (0-4); NEUTROPHIL 77 % (50-75); TOTAL CELLS COUNTED 100
[2017-01-10 02:46] LABS: GIANT PLATELETS PRESENT; LARGE PLATELETS PRESENT
[2017-01-10 07:53] VITALS: BP 162/66; PULSE 72; RESP 18; TEMP 98.2; O2SAT 97
== END 2017-01-10 08:13 | disposition home or self-care (01) ==
LOC: C.ER 00:28
DX: L50.0 Allergic urticaria (principal); T50.995A Adverse effect of other drugs, medicaments and biological substances, initial encounter
CPT/HCPCS: 80048; 85025; 85610; 85730; 96374; 96375; 99284; J1200; J2930